=== PATIENT | female | born 1955 | race Caucasian/White ===

== ENCOUNTER → 2017-03-18 | Outpatient (CLI) | payer OTHER ==
[~2017-03-18] MED LIST: ALBU90OI61 INH; AMLO10 PO; ATEN25 PO; Aspir 8181 MG PO; BENZ100A PO; BUSP10 PO; CETI5 PO; CHLO25 PO; CLON.1 PO; ETAN50I SC; FLONASE ALLERG9.9 ML; FOLI1 PO; FURO40 PO; Flovent Diskus50 MCG IH; HYDCHL25 PO; IBUP600 PO; IBUP800 PO; INSULANPEN SC; K-Dur20 MEQ PO; K-Phos Origina500 MG PO; LEVSOD137 PO; LOPE2C PO; MAGCHL64ER PO; METO50ER PO; Macrobid 100 M100 MG PO; Norco 5-325 Ta1 EACH PO; Omeprazole20 M1 PO; PANT40 PO; Pyridium100 MG PO; Spiriva Respimat INH; Spironolactone100 MG PO; THIA100 PO; TRAZ150T57; Triamcinolone A15 G2 TOP; Zofran4 MG PO
== END | disposition home or self-care (01) ==
LOC: PLD 07:03
DX: R31.9 Hematuria, unspecified (principal)
CPT/HCPCS: 88108

== ENCOUNTER 2017-03-31 03:29 | Inpatient (IN) | payer OTHER ==
[~2017-03-31] VITALS: Ht 170.2 cm; Wt 100.9 kg
[~2017-03-31 03:29] MED LIST changes: -BENZ100A PO; -CLON.1 PO; -FLONASE ALLERG9.9 ML; -FOLI1 PO; -IBUP600 PO; -K-Phos Origina500 MG PO; -LOPE2C PO; -Macrobid 100 M100 MG PO; -PANT40 PO; -Pyridium100 MG PO; -THIA100 PO; -Triamcinolone A15 G2 TOP
[2017-03-31 03:56] LABS: BASOPHILS ABSOLUTE AUTO 0.08 K/mm3 (0.00-0.23); BASOPHILS PERCENT AUTO 1 % (0-2); EOSINOPHILS ABSOLUTE AUTO 0.25 K/mm3 (0.00-0.68); EOSINOPHILS PERCENT AUTO 3 % (0-6); Hematocrit 39.2 % (33.0-51.0); Hemoglobin 13.2 g/dL (11.5-16.0); IMMATURE GRAN ABSOLUTE AUTO 0.02 K/mm3 (0.00-0.10); IMMATURE GRAN PERCENT AUTO 0 % (0-1); LYMPHOCYTES ABSOLUTE AUTO 1.53 K/mm3 (0.84-5.20); LYMPHOCYTES PERCENT AUTO 17 % (21-46); MONOCYTES ABSOLUTE AUTO 1.81 K/mm3 (0.16-1.47); MONOCYTES PERCENT AUTO 20 % (4-13); Mean Corpuscular HGB 29.9 pg (26.0-34.0); Mean Corpuscular HGB Conc 33.7 g/dL (31.5-36.5); Mean Corpuscular Volume 89 fL (80-100); Mean Platelet Volume 10.2 fL (9.1-12.4); NEUTROPHILS ABSOLUTE AUTO 5.31 K/mm3 (1.96-9.15); NEUTROPHILS PERCENT AUTO 59 % (41-73); Platelet Count 227 K/mm3 (150-400); RDW Coefficient Variation 15.3 % (11.7-14.2); RDW Standard Deviation 49.4 fL (35.1-46.3); Red Blood Cell Count 4.41 M/mm3 (3.80-5.20)
[2017-03-31 04:14] LABS: Alanine Aminotransfer (ALT/SGP 58 U/L (12-78); Albumin, Blood 3.1 g/dL (3.4-5.0); Albumin/Globulin Ratio 0.6 (0.8-1.8); Alk Phos 141 U/L (50-136); Anion Gap 7 mmol/L (6-16); Aspartate Aminotrans (AST/SGOT 72 U/L (12-37); Bilirubin, Total 1.1 mg/dL (0.1-1.0); Blood Urea Nitrogen 19 mg/dL (8-24); Bun/Creatinine Ratio 18.1 (12.0-20.0); CO2, Blood 29 mmol/L (21-32); Calcium, Blood 8.3 mg/dL (8.5-10.1); Chloride, Blood 95 mmol/L (98-108); Creatinine, Blood 1.05 mg/dL (0.40-1.00); Ethanol (Alcohol), Blood, Med <3 mg/dL; Globulin, Blood 4.9 g/dL (2.2-4.0); Glomerular Filtration Rate 57 (60-); Glucose, Blood 113 mg/dL (70-99); Potassium, Blood 3.8 mmol/L (3.5-5.5); Sodium, Blood 131 mmol/L (136-145); Troponin I <0.015 ng/mL (0.000-0.040)
[2017-03-31 05:17] LABS: CHOL/HDL RATIO 4.8; Cholesterol 198 mg/dL (50-200); Free Thyroxine 1.34 ng/dL (0.70-1.60); HDL Cholesterol 41 mg/dL (>39); LDL/HDL RATIO 3.4; Low Density Lipoprotein Chol 140 mg/dL (0-110); Triglycerides 83 mg/dL (30-160); Very Low Density Lipoprot Chol 16 mg/dL (6-32)
[2017-03-31 05:20] LABS: Thyroid Stimulating Hormone 0.594 uIU/mL (0.360-4.800)
[2017-03-31 08:16] LABS: Source, Urine Clean Catch
[2017-03-31 08:32] LABS: Bilirubin, Urine Neg (Neg); Blood, Urine 5+ (Neg); Glucose Qualitative, Urine Neg (Neg); Ketones, Urine Neg (Neg); Leukocyte Esterase, Urine Neg (Neg); Nitrite, Urine Neg (Neg); Protein, Urine Neg (Neg); Urobilinogen, Urine NORM (Normal)
[2017-03-31 08:50] LABS: Appearance, Urine Clear (Clear); Color, Urine Yellow (P-Yellow)
[2017-03-31 08:53] LABS: Bacteria Few /hpf; Red Blood Cells, Urine TNTC /hpf (0-2); Squamous Epithelial Cells Rare /hpf (Few); White Blood Cells, Urine Rare /hpf (0-5)
[2017-03-31 12:58] LABS: Alanine Aminotransfer (ALT/SGP 48 U/L (12-78); Albumin, Blood 2.7 g/dL (3.4-5.0); Albumin/Globulin Ratio 0.7 (0.8-1.8); Alk Phos 117 U/L (50-136); Anion Gap 10 mmol/L (6-16); Aspartate Aminotrans (AST/SGOT 60 U/L (12-37); Bilirubin, Total 1.5 mg/dL (0.1-1.0); Blood Urea Nitrogen 17 mg/dL (8-24); Bun/Creatinine Ratio 19.1 (12.0-20.0); CO2, Blood 25 mmol/L (21-32); Chloride, Blood 99 mmol/L (98-108); Creatinine, Blood 0.89 mg/dL (0.40-1.00); Glomerular Filtration Rate >60 (60-); Glucose, Blood 96 mg/dL (70-99); Potassium, Blood 3.8 mmol/L (3.5-5.5); Sodium, Blood 134 mmol/L (136-145); Total Protein, Blood 6.7 g/dL (6.4-8.2)
[2017-03-31 16:35] LABS: BASOPHILS ABSOLUTE AUTO 0.09 K/mm3 (0.00-0.23); BASOPHILS PERCENT AUTO 1 % (0-2); EOSINOPHILS ABSOLUTE AUTO 0.09 K/mm3 (0.00-0.68); EOSINOPHILS PERCENT AUTO 1 % (0-6); Hematocrit 34.7 % (33.0-51.0); Hemoglobin 11.6 g/dL (11.5-16.0); IMMATURE GRAN ABSOLUTE AUTO 0.01 K/mm3 (0.00-0.10); IMMATURE GRAN PERCENT AUTO 0 % (0-1); LYMPHOCYTES ABSOLUTE AUTO 1.54 K/mm3 (0.84-5.20); LYMPHOCYTES PERCENT AUTO 23 % (21-46); MONOCYTES ABSOLUTE AUTO 1.37 K/mm3 (0.16-1.47); MONOCYTES PERCENT AUTO 20 % (4-13); Mean Corpuscular HGB 29.4 pg (26.0-34.0); Mean Corpuscular HGB Conc 33.4 g/dL (31.5-36.5); Mean Corpuscular Volume 88 fL (80-100); Mean Platelet Volume 10.3 fL (9.1-12.4); NEUTROPHILS ABSOLUTE AUTO 3.68 K/mm3 (1.96-9.15); NEUTROPHILS PERCENT AUTO 54 % (41-73); Platelet Count 169 K/mm3 (150-400); RDW Standard Deviation 48.2 fL (35.1-46.3); Red Blood Cell Count 3.95 M/mm3 (3.80-5.20); White Blood Cell Count 6.78 K/mm3 (4.00-11.30)
[2017-04-01 05:17] LABS: BASOPHILS ABSOLUTE AUTO 0.07 K/mm3 (0.00-0.23); BASOPHILS PERCENT AUTO 1 % (0-2); EOSINOPHILS ABSOLUTE AUTO 0.22 K/mm3 (0.00-0.68); EOSINOPHILS PERCENT AUTO 5 % (0-6); Hematocrit 33.9 % (33.0-51.0); Hemoglobin 11.2 g/dL (11.5-16.0); IMMATURE GRAN PERCENT AUTO 0 % (0-1); LYMPHOCYTES ABSOLUTE AUTO 1.19 K/mm3 (0.84-5.20); LYMPHOCYTES PERCENT AUTO 25 % (21-46); MONOCYTES ABSOLUTE AUTO 0.91 K/mm3 (0.16-1.47); MONOCYTES PERCENT AUTO 19 % (4-13); Mean Corpuscular HGB 29.1 pg (26.0-34.0); Mean Corpuscular Volume 88 fL (80-100); Mean Platelet Volume 10.3 fL (9.1-12.4); NEUTROPHILS ABSOLUTE AUTO 2.47 K/mm3 (1.96-9.15); NEUTROPHILS PERCENT AUTO 51 % (41-73); Platelet Count 152 K/mm3 (150-400); RDW Coefficient Variation 14.8 % (11.7-14.2); RDW Standard Deviation 47.9 fL (35.1-46.3); Red Blood Cell Count 3.85 M/mm3 (3.80-5.20); White Blood Cell Count 4.86 K/mm3 (4.00-11.30)
[2017-04-01 05:48] LABS: Anion Gap 9 mmol/L (6-16); Blood Urea Nitrogen 12 mg/dL (8-24); Bun/Creatinine Ratio 16.5 (12.0-20.0); CO2, Blood 26 mmol/L (21-32); Chloride, Blood 101 mmol/L (98-108); Creatinine, Blood 0.73 mg/dL (0.40-1.00); Glomerular Filtration Rate >60 (60-); Glucose, Blood 86 mg/dL (70-99); Potassium, Blood 3.9 mmol/L (3.5-5.5); Sodium, Blood 136 mmol/L (136-145)
[2017-04-02 04:57] LABS: Alanine Aminotransfer (ALT/SGP 39 U/L (12-78); Albumin, Blood 2.4 g/dL (3.4-5.0); Albumin/Globulin Ratio 0.6 (0.8-1.8); Alk Phos 109 U/L (50-136); Anion Gap 9 mmol/L (6-16); Aspartate Aminotrans (AST/SGOT 49 U/L (12-37); Bilirubin, Total 1.3 mg/dL (0.1-1.0); Blood Urea Nitrogen 14 mg/dL (8-24); Bun/Creatinine Ratio 18.2 (12.0-20.0); CO2, Blood 26 mmol/L (21-32); Calcium, Blood 8.4 mg/dL (8.5-10.1); Chloride, Blood 101 mmol/L (98-108); Creatinine, Blood 0.77 mg/dL (0.40-1.00); Glomerular Filtration Rate >60 (60-); Glucose, Blood 112 mg/dL (70-99); Potassium, Blood 3.9 mmol/L (3.5-5.5); Sodium, Blood 136 mmol/L (136-145); Total Protein, Blood 6.4 g/dL (6.4-8.2)
[2017-05-20] MEDS ORDERED: IBUP600 PO (09:04)
[2017-05-20] MEDS ORDERED: LOPE2C PO (09:04)
[2017-05-20] MEDS ORDERED: Pyridium100 MG PO (09:04)
[2017-05-20] MEDS ORDERED: Macrobid 100 M100 MG PO (09:04)
[2017-08-16] MEDS ORDERED: Triamcinolone A15 G2 TOP (15:15)
[2017-08-16] MEDS ORDERED: BENZ100A PO (15:16)
[2017-08-16] MEDS ORDERED: ALBU90OI61 INH (15:16)
[2017-08-16] MEDS ORDERED: FLONASE ALLERG9.9 ML (15:20)
[2017-08-19] MEDS ORDERED: FOLI1 PO (12:47)
[2017-08-19] MEDS ORDERED: CLON.1 PO (12:47)
[2017-08-19] MEDS ORDERED: PANT40 PO (12:48)
[2017-08-19] MEDS ORDERED: THIA100 PO (12:49)
[2017-08-19] MEDS ORDERED: K-Phos Origina500 MG PO (12:49)
== END 2017-04-02 14:15 | disposition home or self-care (01) | DRG 440 ==
LOC: ER 03:29 → MEDS 03:30 → ENPENDDIS 04-02 10:00 → MEDS 04-02 14:15
PROVIDERS: Emergency Medicine; Internal Medicine
DX: K85.90 Acute pancreatitis without necrosis or infection, unspecified (principal); E03.9 Hypothyroidism, unspecified; E11.9 Type 2 diabetes mellitus without complications; I10 Essential (primary) hypertension; L40.9 Psoriasis, unspecified; F10.20 Alcohol dependence, uncomplicated; Z88.8 Allergy status to other drugs, medicaments and biological substances; Z79.4 Long term (current) use of insulin; Z79.899 Other long term (current) drug therapy
CPT/HCPCS: 36415; 71046; 76705; 80048; 80053; 80061; 81001; 82947; 83690; 84439; 84443; 84484; 85025; 87077; 87086; 87147; 87186; 93005; 93010; 94640; 94760; 99285; G0480; J1650; J1815; J3411; J7030

== ENCOUNTER → 2018-06-22 | Outpatient (CLI) | payer OTHER ==
[~2018-06-22] MED LIST changes: +BENZ100A PO; +CLON.1 PO; +FLONASE ALLERG9.9 ML; +FOLI1 PO; +IBUP600 PO; +K-Phos Origina500 MG PO; +LOPE2C PO; +Macrobid 100 M100 MG PO; +PANT40 PO; +Pyridium100 MG PO; +THIA100 PO; +Triamcinolone A15 G2 TOP
== END ==
LOC: LAB 16:20 → LAB SHORT 16:20
DX: L08.9 Local infection of the skin and subcutaneous tissue, unspecified (principal)
CPT/HCPCS: 87070; 87077; 87147; 87186; 87205

== ENCOUNTER → 2018-12-01 | Outpatient (CLI) | payer OTHER ==
[2018-12-01 19:48] LABS: Creatinine, Urine Random 25.7 mg/dL (27.00-270.00)
[2018-12-01 19:51] LABS: Microalb/Creat Ratio UR, Rand 38.794 mg/g (0.000-30.000); Microalbumin, Random Urine 9.97 mg/L (0.000-20.000)
== END | disposition home or self-care (01) ==
LOC: LAB SHORT 13:01 → LAB 13:01
PROVIDERS: Nurse Practitioner Family
DX: E11.65 Type 2 diabetes mellitus with hyperglycemia (principal)
CPT/HCPCS: 82043; 82570

== ENCOUNTER 2019-12-18 15:52 | Emergency (ER) | payer OTHER ==
[~2019-12-18] VITALS: Ht 170.2 cm; Wt 122.5 kg
[~2019-12-18 15:52] MED LIST changes: +BASAGLAR K100 UNIT/1; +BENADRYL25 MG PO; +CEPH500 PO; +Lotrisone Cream45 GM TOP; +Ultram50 MG PO
[2019-12-18 17:21] LABS: Source, Urine Catheter
[2019-12-18 17:26] LABS: BASOPHILS ABSOLUTE AUTO 0.04 K/mm3 (0.00-0.23); BASOPHILS PERCENT AUTO 1 % (0-2); EOSINOPHILS ABSOLUTE AUTO 0.02 K/mm3 (0.00-0.68); EOSINOPHILS PERCENT AUTO 1 % (0-6); Hemoglobin 11.5 g/dL (11.5-16.0); IMMATURE GRAN ABSOLUTE AUTO 0.01 K/mm3 (0.00-0.10); IMMATURE GRAN PERCENT AUTO 0 % (0-1); LYMPHOCYTES ABSOLUTE AUTO 0.36 K/mm3 (0.84-5.20); LYMPHOCYTES PERCENT AUTO 8 % (21-46); MONOCYTES ABSOLUTE AUTO 0.55 K/mm3 (0.16-1.47); MONOCYTES PERCENT AUTO 13 % (4-13); Mean Corpuscular HGB 32.2 pg (26.0-34.0); Mean Corpuscular HGB Conc 31.9 g/dL (31.5-36.5); Mean Corpuscular Volume 101 fL (80-100); Mean Platelet Volume 9.5 fL (9.1-12.4); NEUTROPHILS ABSOLUTE AUTO 3.39 K/mm3 (1.96-9.15); NEUTROPHILS PERCENT AUTO 78 % (41-73); Platelet Count 85 K/mm3 (150-400); RDW Coefficient Variation 15.2 % (11.7-14.2); RDW Standard Deviation 56.7 fL (35.1-46.3); Red Blood Cell Count 3.57 M/mm3 (3.80-5.20); White Blood Cell Count 4.37 K/mm3 (4.00-11.30)
[2019-12-18 17:45] LABS: Appearance, Urine Hazy (Clear); Bilirubin, Urine Neg (Neg); Blood, Urine 5+ (Neg); Color, Urine Yellow (P-Yellow); Glucose Qualitative, Urine Neg (Neg); Ketones, Urine 1+ (Neg); Leukocyte Esterase, Urine 2+ (Neg); Nitrite, Urine Neg (Neg); Protein, Urine 2+ (Neg); Specific Gravity, Urine 1.005 (1.003-1.022); Urobilinogen, Urine 3+ (Normal)
[2019-12-18 17:46] LABS: International Normalized Ratio 1.31; Prothrombin Time Results 13.8 Sec (9.7-11.5)
[2019-12-18 17:51] LABS: Alanine Aminotransfer (ALT/SGP 48 U/L (12-78); Albumin, Blood 2.6 g/dL (3.4-5.0); Albumin/Globulin Ratio 0.6 (0.8-1.8); Alk Phos 139 U/L (50-136); Anion Gap 9 mmol/L (6-16); Aspartate Aminotrans (AST/SGOT 104 U/L (12-37); Blood Urea Nitrogen 6 mg/dL (8-24); Bun/Creatinine Ratio 7.3 (12.0-20.0); CO2, Blood 24 mmol/L (21-32); Chloride, Blood 104 mmol/L (98-108); Creatinine, Blood 0.82 mg/dL (0.40-1.00); Ethanol (Alcohol), Blood, Med 182 mg/dL; Globulin, Blood 4.3 g/dL (2.2-4.0); Glomerular Filtration Rate >60 (60-); Glucose, Blood 111 mg/dL (70-99); Magnesium, Blood 1.8 mg/dL (1.6-2.4); Potassium, Blood 3.5 mmol/L (3.5-5.5); Sodium, Blood 137 mmol/L (136-145); Total Protein, Blood 6.9 g/dL (6.4-8.2)
[2019-12-18 18:01] LABS: Bacteria Mod /hpf; Red Blood Cells, Urine TNTC /hpf (0-2); Squamous Epithelial Cells Mod /hpf (Few)
[2019-12-18] MEDS ORDERED: Keflex500 MG PO (18:41)
== END 2019-12-18 18:57 | disposition home or self-care (01) ==
LOC: ER 15:52
PROVIDERS: Emergency Medicine
DX: N39.0 Urinary tract infection, site not specified (principal); F10.229 Alcohol dependence with intoxication, unspecified; I10 Essential (primary) hypertension; E11.9 Type 2 diabetes mellitus without complications; E03.9 Hypothyroidism, unspecified; E78.5 Hyperlipidemia, unspecified; K74.60 Unspecified cirrhosis of liver; Z88.8 Allergy status to other drugs, medicaments and biological substances; Z79.4 Long term (current) use of insulin; Z79.899 Other long term (current) drug therapy
CPT/HCPCS: 36415; 80053; 81001; 83690; 83735; 85025; 85610; 86850; 86900; 86901; 87077; 87086; 87186; 99284; A9270-GY; G0480

== ENCOUNTER → 2019-12-29 | Outpatient (CLI) | payer OTHER ==
[~2019-12-29] MED LIST changes: +Keflex500 MG PO
[2019-12-31 12:15] LABS: HPV 16 Negative (Negative); HPV 18 Negative (Negative); HPV OTHER HR TYPES Negative (Negative)
== END | disposition home or self-care (01) ==
LOC: LAB SHORT 09:27 → LAB 09:27
PROVIDERS: Obstetrics & Gynecology
DX: Z01.419 Encounter for gynecological examination (general) (routine) without abnormal findings (principal)
CPT/HCPCS: 87624; G0123

== ENCOUNTER → 2020-02-21 | Outpatient (CLI) | payer OTHER ==
[~2020-02-21] MED LIST changes: +ACAMPROSATE CA333 MG PO; +ALDACTONE25 MG PO; +ANORO ELLIPTA1 EACH INH; +ASPI81CH PO; +ATENOLOL25 MG PO; +ATOR20 PO; +B-1100 M1 PO; -BASAGLAR K100 UNIT/1; +BASAGLAR K100 UNIT/1 SC; -BUSP10 PO; +BUSP5 PO; +Buspirone HCl15 MG PO; +Cetirizine HCl10 MG PO; +DISU250 PO; +ENBREL SUR50 MG/1 M1 SC; -ETAN50I SC; +FERROUS SULFAT325 M3 PO; +FURO80 PO; +FUROSEMIDE40 MG PO; +GLIP5 PO; -K-Dur20 MEQ PO; +KLOR-CON 1010 ME1 PO; +LANOXIN PO; -LEVSOD137 PO; +LEVSOD150 PO; +METO25ER PO; +MIDO5 PO; +MIRALAX17 GM PO; +MULVITA PO; +PRED5 PO; +PROAIR DIGIHAL90 MCG IH; +PROMETRIUM PO; +SPIRIVA RESPIMAT4 G3 INH; +THERA-D2000 UNIT PO; -THIA100 PO; +TIOT18 INH; +Triamcinolone A15 G4 TOP; +XARELTO20 M1 PO; +XARELTO20 MG PO
== END | disposition home or self-care (01) ==
LOC: PLD 13:38 → LAB SHORT 13:38
DX: N95.0 Postmenopausal bleeding (principal)
CPT/HCPCS: 88305

== ENCOUNTER 2020-04-09 09:53 | Inpatient (IN) | payer OTHER ==
[~2020-04-09] VITALS: Ht 170.2 cm; Wt 118.2 kg
[~2020-04-09 09:53] MED LIST changes: -ACAMPROSATE CA333 MG PO; -ALDACTONE25 MG PO; -ANORO ELLIPTA1 EACH INH; -ASPI81CH PO; -ATENOLOL25 MG PO; -ATOR20 PO; -B-1100 M1 PO; -BUSP5 PO; -Cetirizine HCl10 MG PO; -DISU250 PO; -FERROUS SULFAT325 M3 PO; -FOLI1 PO; -FURO80 PO; -FUROSEMIDE40 MG PO; -GLIP5 PO; -LANOXIN PO; -MAGCHL64ER PO; -METO25ER PO; -MIDO5 PO; -MIRALAX17 GM PO; -MULVITA PO; -PRED5 PO; -PROAIR DIGIHAL90 MCG IH; -PROMETRIUM PO; -SPIRIVA RESPIMAT4 G3 INH; -THERA-D2000 UNIT PO; -TIOT18 INH; -Triamcinolone A15 G4 TOP; -XARELTO20 M1 PO; -XARELTO20 MG PO
[2020-04-09 11:08] LABS: BASOPHILS ABSOLUTE AUTO 0.06 K/mm3 (0.00-0.23); BASOPHILS PERCENT AUTO 0 % (0-2); EOSINOPHILS ABSOLUTE AUTO 0.01 K/mm3 (0.00-0.68); EOSINOPHILS PERCENT AUTO 0 % (0-6); Hematocrit 35.4 % (33.0-51.0); Hemoglobin 10.9 g/dL (11.5-16.0); IMMATURE GRAN PERCENT AUTO 1 % (0-1); LYMPHOCYTES ABSOLUTE AUTO 0.53 K/mm3 (0.84-5.20); LYMPHOCYTES PERCENT AUTO 3 % (21-46); MONOCYTES PERCENT AUTO 8 % (4-13); Mean Corpuscular HGB 30.9 pg (26.0-34.0); Mean Corpuscular HGB Conc 30.8 g/dL (31.5-36.5); Mean Corpuscular Volume 100 fL (80-100); Mean Platelet Volume 10.6 fL (9.1-12.4); NEUTROPHILS ABSOLUTE AUTO 18.08 K/mm3 (1.96-9.15); NEUTROPHILS PERCENT AUTO 88 % (41-73); NRBC ABSOLUTE 0.02 K/mm3 (0.00-0.02); NRBC Auto 0.1 /100 WBC (0.0-0.2); Platelet Count 107 K/mm3 (150-400); RDW Coefficient Variation 17.5 % (11.7-14.2); RDW Standard Deviation 63.1 fL (35.1-46.3); Red Blood Cell Count 3.53 M/mm3 (3.80-5.20); White Blood Cell Count 20.48 K/mm3 (4.00-11.30)
[2020-04-09 11:27] LABS: Albumin, Blood 2.4 g/dL (3.4-5.0); Albumin/Globulin Ratio 0.5 (0.8-1.8); Bilirubin, Total 4.7 mg/dL (0.1-1.0); Bun/Creatinine Ratio 18.9 (12.0-20.0); Creatinine, Blood 1.06 mg/dL (0.40-1.00); Globulin, Blood 5.1 g/dL (2.2-4.0); Potassium, Blood 3.3 mmol/L (3.5-5.5); Total Protein, Blood 7.5 g/dL (6.4-8.2); Troponin I 0.498 ng/mL (0.000-0.040)
[2020-04-09] MEDS ORDERED: ANORO ELLIPTA1 EACH INH (11:42)
[2020-04-09 11:43] LABS: Ethanol (Alcohol), Blood, Med <3 mg/dL; Magnesium, Blood 1.6 mg/dL (1.6-2.4); Phosphorus, Blood 3.2 mg/dL (2.5-4.9)
[2020-04-09] MEDS ORDERED: PROMETRIUM PO (11:43)
[2020-04-09 11:46] LABS: Source, Urine Clean Catch
[2020-04-09 11:55] LABS: Appearance, Urine Hazy (Clear); Blood, Urine 5+ (Neg); Color, Urine Amber (P-Yellow); Glucose Qualitative, Urine Neg (Neg); Ketones, Urine 1+ (Neg); Leukocyte Esterase, Urine 1+ (Neg); Nitrite, Urine Pos (Neg); Protein, Urine 4+ (Neg); Urobilinogen, Urine 2+ (Normal)
[2020-04-09 12:04] LABS: Bilirubin, Urine 2+ (Neg)
[2020-04-09 12:10] LABS: Bacteria Mod /hpf; Red Blood Cells, Urine TNTC /hpf (0-2); Squamous Epithelial Cells Mod /hpf (Few)
[2020-04-09 12:14] LABS: U Amphetamine Screen Not Detected; U Barbituate Screen Not Detected; U Benzodiazapine Screen Not Detected; U Buprenorphine Screen Not Detected; U Cannabinoids Screen Not Detected; U Cocaine Screen Not Detected; U Methadone Screen Not Detected; U Methamphetamine Screen Not Detected; U Opiates Screen Not Detected; U Oxycodone Screen Not Detected; U Phencyclidine Screen Not Detected; U Propoxyphene Screen Not Detected
[2020-04-09] MEDS ORDERED: Cetirizine HCl10 MG PO (12:49)
[2020-04-09] MEDS ORDERED: FUROSEMIDE40 MG PO (12:51)
[2020-04-09] MEDS ORDERED: GLIP5 PO (12:52)
[2020-04-09 12:55] LABS: Influenza A, PCR Negative (NEGATIVE); Influenza B, PCR Negative (NEGATIVE); Resp Syncytial Virus, PCR Negative (NEGATIVE); SARS-Cov-2 (COVID-19) PCR, MMC Negative (NEGATIVE)
[2020-04-09] MEDS ORDERED: B-1100 M1 PO (13:29)
[2020-04-09] MEDS ORDERED: FOLI1 PO (13:29)
[2020-04-09] MEDS ORDERED: DISU250 PO (13:44)
[2020-04-09] MEDS ORDERED: MAGCHL64ER PO (13:47)
--- NOTE | 2020-04-09 16:10 | NUR ---
ASSSUMED CARE: PT ARRIVED TO PCU 3 ON 2L O2 SATTING LOW 90S. PT APPEARS TO BE GRUNTING AND TAKING BREATHS BETWEEN WORDS, UNABLE TO COMPLETE A SENTENCE WITHOUT TAKING A BREATH. LUNG SOUNDS COARSE. NSR WITH PVCS IN 120S ON TELE AT THIS TIME. SEIZURE PADS IN PLACE. PSORIASIS NOTED T/O BODY, ARMS, LEGS AND ABDOMEN AND BACK. STATES SHE FEELS LIKE SHE CAN'T BREATH. DR HOWELL REVIEWED LABS AND IS AT BEDSIDE AT THIS TIME.
--- NOTE | 2020-04-09 16:19 | NUR ---
PT'S RESPIRATORY DISTRESS CAUSING PT TO GRUNT AND STRUGGLE BUT SATTING 91% ON 2L NC. DR HOWELL ASKED FOR RT TO COME EVALUATE. RT AT BEDSIDE AT TIS TIME.
--- NOTE | 2020-04-09 19:15 | NUR ---
SHIFT SUMMARY: PT ON CPAP BUT PULLING IT OFF FREQUENTLY AND CONFUSED. INCREASED WORK OF BREATHING. ATIVAN PROVIDED THAT DID NOT SEEM EFFECTIVE. NIGHT FUR PULLER AWARE OF PT'S RECENT CIWA AND STATUS. AT BEDSIDE WITH NIGHT RN AND CURING OVEN ATTENDANT AT THIS TIME. CARDIOLOGY CONSULT CALLED IN TO BE SEEN TOMORROW.
[2020-04-09 22:27] LABS: Source, Urine Catheter
[2020-04-09 22:31] LABS: Appearance, Urine Clear (Clear); Blood, Urine 5+ (Neg); Color, Urine Amber (P-Yellow); Glucose Qualitative, Urine Neg (Neg); Ketones, Urine 1+ (Neg); Leukocyte Esterase, Urine 1+ (Neg); Nitrite, Urine Pos (Neg); Protein, Urine 2+ (Neg); Urobilinogen, Urine 2+ (Normal)
[2020-04-09 22:33] LABS: Bilirubin, Urine 1+ (Neg)
[2020-04-09 22:40] LABS: Bacteria Many /hpf; Red Blood Cells, Urine 25-50 /hpf (0-2); Squamous Epithelial Cells Few /hpf (Few); Yeast/Fungi Urine Few /hpf
[2020-04-10 06:12] LABS: BASOPHILS ABSOLUTE AUTO 0.05 K/mm3 (0.00-0.23); BASOPHILS PERCENT AUTO 0 % (0-2); EOSINOPHILS PERCENT AUTO 0 % (0-6); Hematocrit 33.2 % (33.0-51.0); Hemoglobin 10.1 g/dL (11.5-16.0); IMMATURE GRAN ABSOLUTE AUTO 0.13 K/mm3 (0.00-0.10); IMMATURE GRAN PERCENT AUTO 1 % (0-1); LYMPHOCYTES ABSOLUTE AUTO 0.78 K/mm3 (0.84-5.20); LYMPHOCYTES PERCENT AUTO 5 % (21-46); MONOCYTES ABSOLUTE AUTO 2.01 K/mm3 (0.16-1.47); MONOCYTES PERCENT AUTO 13 % (4-13); Mean Corpuscular HGB 31.3 pg (26.0-34.0); Mean Corpuscular HGB Conc 30.4 g/dL (31.5-36.5); Mean Corpuscular Volume 103 fL (80-100); Mean Platelet Volume 10.6 fL (9.1-12.4); NEUTROPHILS ABSOLUTE AUTO 12.86 K/mm3 (1.96-9.15); NEUTROPHILS PERCENT AUTO 81 % (41-73); NRBC ABSOLUTE 0.02 K/mm3 (0.00-0.02); NRBC Auto 0.1 /100 WBC (0.0-0.2); Platelet Count 103 K/mm3 (150-400); RDW Coefficient Variation 17.2 % (11.7-14.2); RDW Standard Deviation 64.4 fL (35.1-46.3); Red Blood Cell Count 3.23 M/mm3 (3.80-5.20); White Blood Cell Count 15.83 K/mm3 (4.00-11.30)
[2020-04-10 06:39] LABS: Albumin, Blood 2.4 g/dL (3.4-5.0); Albumin/Globulin Ratio 0.6 (0.8-1.8); Bilirubin, Total 3.4 mg/dL (0.1-1.0); Bun/Creatinine Ratio 22.1 (12.0-20.0); Calcium, Blood 7.6 mg/dL (8.5-10.1); Creatinine, Blood 1.31 mg/dL (0.40-1.00); Globulin, Blood 4.3 g/dL (2.2-4.0); Potassium, Blood 3.3 mmol/L (3.5-5.5); Total Protein, Blood 6.7 g/dL (6.4-8.2)
--- NOTE | 2020-04-10 11:01 | NUR ---
AM NOTE DURING ASSESSMENT PT ALERT AND ORIENTED x3; ANXIOUS BUT COOPERATIVE WITH CARE. PT REPORT OBRIEN; TREMORS NOTED WITH MOVEMENT; PT DENIES HALLUCINATIONS. PT APPEARS TO EAT BREAKFAST WITHOUT ISSUE HOWEVER COUGHING WITH MEDICATIONS IN WATER; CBG 60'S THIS AM; NOTIFIED DR RENEE, ORDERS TO RECHECK BLOOD GLUCOSE. PT A LITTLE CONFUSED ON LAST ROUNDING; DR RENEE AT BEDSIDE. PT BREATHING LABORED AT TIMES; DIM T/O. SPO2 >90% ON 2L O2 VIA NC OR CPAP. ABD DISTENDER, FIRM ON PALPATATION. OTHER VSS. WILL CONTINUE TO MONITOR.
--- NOTE | 2020-04-10 16:06 | NUR ---
ADMIT: 04/09/20 DISCHARGE: DX: Hypoxia, Sepsis CC: ADMIT: 08/16/17 DISCHARGE: 08/18/17 NICA CALL: CALL PATIENT FOR NICA RESIDENCE: home CAREGIVER: self DX: alcoholism, cirrhosis, HTN, GERD, Type 2 DM see list DME: DM supplies, adult pull ups, grab bars, shower chair, see list CCM: Referral 2018 HOME HEALTH: none SUMMARY: 04/09/20 04/10/20- per chart review with Dr. Polk, pt is on CPAP and Bipap due to low O2 at admission and pneumonis. Pt is also in alcohol withdrawal and being monitored for this along with sepsis and a UTI. Orders have been placed for OT and PT, along with an echocardiogram and requested for cardiology consult. No est ETA for d/c at this time. -abdiel
--- NOTE | 2020-04-10 18:34 | NUR ---
SHIFT SUMMARY PT HAVING INTERMITTENT CONFUSION T/O SHIFT. ANXIOUS AT TIMES. PT REPORTING BACK PAIN, REPOSITIONED FOR COMFORT. PT REPORTS HEADACHE, NAUSEA AND HAVING TREMORS DURING SHIFT. PT DENIES HALLUCINATIONS. CIWA 10-11 T/O SHIFT, MEDICATED x2 WITH ATIVAN. PT ON CPAP FOR MAJOIRTY OF SHIFT. PER TELE PT HR JUMPING TO 140'S BUT QUICK TRENDS DOWN. PT OUTPUT 350cc DURING SHIFT, DR RENEE NOTIFIED. PT CONTINUES TO COUGH WITH SIPS OF WATER; DR RENEE AT BEDSIDE, NEW ORDERS FOR THICKENED LIQUIDS. VSS. NO OTHER ACUTE CHAGNES NOTED DURING SHIFT.
[2020-04-11 00:58] LABS: BASOPHILS ABSOLUTE AUTO 0.04 K/mm3 (0.00-0.23); BASOPHILS PERCENT AUTO 0 % (0-2); EOSINOPHILS ABSOLUTE AUTO 0.01 K/mm3 (0.00-0.68); EOSINOPHILS PERCENT AUTO 0 % (0-6); Hematocrit 33.4 % (33.0-51.0); Hemoglobin 9.9 g/dL (11.5-16.0); IMMATURE GRAN ABSOLUTE AUTO 0.26 K/mm3 (0.00-0.10); IMMATURE GRAN PERCENT AUTO 2 % (0-1); LYMPHOCYTES ABSOLUTE AUTO 1.02 K/mm3 (0.84-5.20); LYMPHOCYTES PERCENT AUTO 6 % (21-46); MONOCYTES ABSOLUTE AUTO 2.53 K/mm3 (0.16-1.47); MONOCYTES PERCENT AUTO 16 % (4-13); Mean Corpuscular HGB 30.7 pg (26.0-34.0); Mean Corpuscular HGB Conc 29.6 g/dL (31.5-36.5); Mean Corpuscular Volume 103 fL (80-100); Mean Platelet Volume 10.9 fL (9.1-12.4); NEUTROPHILS ABSOLUTE AUTO 12.34 K/mm3 (1.96-9.15); NEUTROPHILS PERCENT AUTO 76 % (41-73); NRBC ABSOLUTE 0.02 K/mm3 (0.00-0.02); NRBC Auto 0.1 /100 WBC (0.0-0.2); Platelet Count 118 K/mm3 (150-400); RDW Coefficient Variation 17.6 % (11.7-14.2); RDW Standard Deviation 65.9 fL (35.1-46.3); Red Blood Cell Count 3.23 M/mm3 (3.80-5.20)
[2020-04-11 01:19] LABS: Albumin, Blood 2.4 g/dL (3.4-5.0); Albumin/Globulin Ratio 0.5 (0.8-1.8); Bilirubin, Total 3.6 mg/dL (0.1-1.0); Bun/Creatinine Ratio 22.8 (12.0-20.0); Calcium, Blood 7.9 mg/dL (8.5-10.1); Creatinine, Blood 1.67 mg/dL (0.40-1.00); Globulin, Blood 4.8 g/dL (2.2-4.0); Potassium, Blood 3.5 mmol/L (3.5-5.5); Total Protein, Blood 7.2 g/dL (6.4-8.2)
[2020-04-11 01:40] LABS: Vancomycin, Trough 30.2 ug/mL (5.0-10.0)
--- NOTE | 2020-04-11 05:52 | NUR ---
SHIFT SUMMARY PT RESTED WELL THROUGH NGHT. CIWAS 8, 7, AND 5. ATIVAN X1. ZOFRAN X1. LETHARGIC AND DISORIENTED. ATTENDS CHANGED - BABY POWDER IN FOLDS TO KEEP DRY AND PREVENT IRRITATION. CABALLERO DRAINING TO GRAVITY - IAN CARE PERFORMED. SATS >90% ON 2LNC, CPAP AT HS. TELE AFIB. VSS. CALL LIGHT WITHIN REACH, BED IN LOWEST POSITION. WILL OCNTINUE TO MONITOR.
--- NOTE | 2020-04-11 12:17 | NUR ---
Pt was asking for lunch about an hour ago. Assisted from bed to chair, very weak. Fell asleep after being fed about 3 bites. She is still sitting up in the chair.
--- NOTE | 2020-04-11 13:01 | NUR ---
04/11/20- PER CHART REVIEW, PT IS STILL EXPERIENCING ALCOHOL WITHDRAWAL AND ARRHYTHMIAS. PT IS ALSO SEPTIC AND HAS A RIGHT LOWER LOBE PNEUMONIA AND UTI. NO EST ETA FOR D/C AT THIS TIME. -CRIS
[2020-04-11 14:19] LABS: Vancomycin, Trough 19.3 ug/mL (5.0-10.0)
--- NOTE | 2020-04-11 17:07 | NUR ---
NOTIFIED DR SEVERINO OF PROVIDER CONSULT; NEW ORDERS ENTERED.
--- NOTE | 2020-04-11 18:44 | NUR ---
SHIFT SUMMARY PT MORE ALERT DURING SHIFT, ORIENTED x2-3; INTERMITTENT CONFUSION. CIWA <8 T/O SHIFT. PT SOB WITH EXERTION; TITRATED TO RA; SPO2 >90 T/O SHIFT. UP IN RECLINER THIS AFTERNOON. CABALLERO IN PLACE; PATENT AND DRAINING, OUTPUT 250cc DR SEVERINO NOTIFIED. DR SEVERINO AT BEDSIDE THIS EVENING; NEW ORDER ENTERED. VSS. NO OTHER ACUTE CHANGES NOTED DURING SHIFT. WILL CONTINUE TO MONITOR UNTIL REPORT GIVEN TO ONCOMING RN.
[2020-04-12 05:41] LABS: BASOPHILS ABSOLUTE AUTO 0.08 K/mm3 (0.00-0.23); BASOPHILS PERCENT AUTO 1 % (0-2); EOSINOPHILS ABSOLUTE AUTO 0.13 K/mm3 (0.00-0.68); EOSINOPHILS PERCENT AUTO 1 % (0-6); Hematocrit 34.1 % (33.0-51.0); Hemoglobin 10.4 g/dL (11.5-16.0); IMMATURE GRAN ABSOLUTE AUTO 0.34 K/mm3 (0.00-0.10); IMMATURE GRAN PERCENT AUTO 2 % (0-1); LYMPHOCYTES ABSOLUTE AUTO 1.48 K/mm3 (0.84-5.20); LYMPHOCYTES PERCENT AUTO 10 % (21-46); MONOCYTES ABSOLUTE AUTO 2.21 K/mm3 (0.16-1.47); MONOCYTES PERCENT AUTO 15 % (4-13); Mean Corpuscular HGB 31.5 pg (26.0-34.0); Mean Corpuscular HGB Conc 30.5 g/dL (31.5-36.5); Mean Corpuscular Volume 103 fL (80-100); Mean Platelet Volume 10.7 fL (9.1-12.4); NEUTROPHILS ABSOLUTE AUTO 10.94 K/mm3 (1.96-9.15); NEUTROPHILS PERCENT AUTO 72 % (41-73); NRBC ABSOLUTE 0.03 K/mm3 (0.00-0.02); NRBC Auto 0.2 /100 WBC (0.0-0.2); Platelet Count 148 K/mm3 (150-400); RDW Coefficient Variation 17.8 % (11.7-14.2); RDW Standard Deviation 65.8 fL (35.1-46.3); White Blood Cell Count 15.18 K/mm3 (4.00-11.30)
[2020-04-12 06:16] LABS: Alanine Aminotransfer (ALT/SGP 78 U/L (12-78); Albumin, Blood 2.4 g/dL (3.4-5.0); Albumin/Globulin Ratio 0.5 (0.8-1.8); Alk Phos 104 U/L (50-136); Anion Gap 7 mmol/L (6-16); Aspartate Aminotrans (AST/SGOT 215 U/L (12-37); Bilirubin, Total 3.6 mg/dL (0.1-1.0); Blood Urea Nitrogen 35 mg/dL (8-24); Bun/Creatinine Ratio 22.9 (12.0-20.0); CO2, Blood 31 mmol/L (21-32); Calcium, Blood 8.4 mg/dL (8.5-10.1); Chloride, Blood 107 mmol/L (98-108); Creatinine, Blood 1.53 mg/dL (0.40-1.00); Glomerular Filtration Rate 37 (60-); Glucose, Blood 117 mg/dL (70-99); Magnesium, Blood 1.9 mg/dL (1.6-2.4); Phosphorus, Blood 4.3 mg/dL (2.5-4.9); Potassium, Blood 3.2 mmol/L (3.5-5.5); Sodium, Blood 145 mmol/L (136-145); Total Protein, Blood 7.4 g/dL (6.4-8.2)
--- NOTE | 2020-04-12 07:38 | NUR ---
SHIFT SUMMARY PT ALERT, ORIENTED TO SELF; UNABLE TO ANSWER ORIENTING QUESTIONS; VSS; NSR W/ PVC NOTED ON TELE; O2 SATS >93 ON 3L NC; CPAP AT TIMES; PT PULLS IT OFF AT TIMES; CABALLERO PULLED, UNKNOWN HOW; BALLOON WAS FOUND TO STILL BE INFLATED; NO BLEEDING OR TRAUMA NOTED; SKIN RED / PLAQUE PSORIASIS T/O; BLE 1+; 24 URINE IN PROGRESS, 1 UNMEASURED VOID SINCE CABALLERO DISPLACED; ATIVAN X1 FOR CIWA 9; CAMERA ON FOR SAFETY OF PULLING LINES; CALL LIGHT IN REACH; BED IN LOWEST POSITION; BED ALARM ON; REPORT GIVEN TO DAY SHIFT RN.
[2020-04-12 10:29] LABS: Protein, Urine Quantitative 9.3 mg/dL (0.0-11.9)
--- NOTE | 2020-04-12 19:36 | NUR ---
Shift summary: Pt alert to self and situation. At times she was able to state she was in the hospital but not able to state correct date or time. Intermittent confusion, discussing a cat in the room this am. Vital signs stable. Tele showing NSR with HR 70-80's. On 1-2 L nasal cannula this shift sating above 92%. Wearing CPAP this am when asleep. Speech in to see pt, new orders placed and patient NPO status with med delivery precautions. Dr. Higgins in to see patient and orders placed for specific medications to be po. See nurse notify order. Nystatin cream also ordered for yeast rash under bilateral breasts. Skin clean, and dry. Scattered psoriasis throughout body. Pt up to bedside commode this shift voiding well, SOB with exerction. 1 L fluid restriction maintained. Dr. Grajeda paged twice today then called for order verification on potassium 80 meq. Order verification recieved later this evening and 2nd 40 meq dose of potassium started. Camera remained on for patient safety. Call light remained in reach and bed low in locked position.
--- NOTE | 2020-04-12 19:44 | NUR ---
PHARMACY NOTIFIED THIS RN CONCERNING POSSIBLE DUPLICATE ORDER OF IV K+. 40 MEQ ORDERED FOR MORNING AND ANOTHER 40 MEQ IV ORDERED FOR EARLY AFTERNOON. THIS RN SPOKE WITH CHARGE NURSE MEL REGARDING K+ ORDER, MEL RN AGREED TO VERIFY ORDER WITH DR. CRISTINA. THIS RN PAGED DR. CRISTINA TWICE THIS SHIFT, ONCE IN MORNING, ONCE IN EARLY AFTERNOON. DISCUSSED SITUATION AGAIN WITH MEL RN, MEL AGREED ON HOLDING K+ UNTIL VERIFICATION OBTAINED. THIS RN PRESENT WITH BRE RN FOR CALL TO DR. CRISTINA CELL PHONE, BRE WAS INSTRUCTED TO CALL AGAIN AT A LATER TIME THE DOCTOR WAS UNABLE TO SPEAK AT THAT TIME. CHARGE NURSE AGAIN UPDATED.
[2020-04-13 04:28] LABS: Hematocrit 35.5 % (33.0-51.0); Hemoglobin 10.8 g/dL (11.5-16.0)
--- NOTE | 2020-04-13 04:49 | NUR ---
SHIFT SUMMARY LYING ON RIGHT SIDE FACING WINDOW WITH EYES CLOSED AND TV ON IN ROOM. AAO X4, BERNSTEIN, FAC. IMPROVED MENTATION NOTED THIS SHIFT. OCCASIONAL HALLUCINATION NOTED TONIGHT. HAS AMBULATED TO BSC MULTIPLE TIMES THIS SHIFT. GREAT OUTPUT NOTED. CONTINUES TO BE NPO AND REPOEATEDLY ASKS FOR SOMETHING TO EAT AND DRINK. NURSING REITERATES NEED FOR NPO AT THIS TIME. VSS, DENIES PAIN, DISCOMFORT, OR FURTHER NEEDS AT THIS TIME. NO SIGNIFICANT CHANGES NOTED. SAFETY MEASURESIN PLACE. WILL CONTINUE TO MONITOR UNTIL HAND OFF USING SBAR AT BEDSIDE SHIFT REPORT.
[2020-04-13 04:53] LABS: Alanine Aminotransfer (ALT/SGP 70 U/L (12-78); Albumin, Blood 2.3 g/dL (3.4-5.0); Anion Gap 8 mmol/L (6-16); Aspartate Aminotrans (AST/SGOT 153 U/L (12-37); Blood Urea Nitrogen 34 mg/dL (8-24); Bun/Creatinine Ratio 21.5 (12.0-20.0); CO2, Blood 39 mmol/L (21-32); Chloride, Blood 103 mmol/L (98-108); Creatinine, Blood 1.58 mg/dL (0.40-1.00); Glomerular Filtration Rate 35 (60-); Glucose, Blood 119 mg/dL (70-99); Magnesium, Blood 1.3 mg/dL (1.6-2.4); Phosphorus, Blood 4.7 mg/dL (2.5-4.9); Potassium, Blood 2.9 mmol/L (3.5-5.5); Sodium, Blood 150 mmol/L (136-145)
[2020-04-13 15:54] LABS: Bun/Creatinine Ratio 21.9 (12.0-20.0); Calcium, Blood 9.1 mg/dL (8.5-10.1); Creatinine, Blood 1.6 mg/dL (0.40-1.00); Magnesium, Blood 2.5 mg/dL (1.6-2.4); Potassium, Blood 3.2 mmol/L (3.5-5.5)
--- NOTE | 2020-04-13 17:17 | NUR ---
NO ACUTE EVENTS THIS SHIFT, VSS. PATIENT IS ORIENTED X4 THIS SHIFT, ABLE TO DISCUSS SITUATION AND PLANS FOR RESCHEDULING HER OUTPATIENT APPOINTMENTS D/T CURRENT HOSPITAL ADMISSION, ABLE TO MAKE APPROPRIATE CALL WITHOUT ASSISTANCE TO HER OUTPATIENT DR'S OFFICE. CIWA SCORE OF 1 THIS SHIFT. PATIENT IS ABLE TO USE CALL LIGHT APPROPRIATELY, COMPLAINS OF PAIN IN R. HIP, RELIEF NOTED WITH REPOSITIONING. PATIENT ON 1-2 L NASAL CANNULA AND SBA TO BEDSIDE COMMODE WITH WALKER. SPEECH WORKED WITH PATIENT TODAY, RECOMMENDATION REMAINS NPO AT THIS TIME, WILL CONTINUE TO FOLLOW.
[2020-04-14 05:18] LABS: BASOPHILS ABSOLUTE AUTO 0.04 K/mm3 (0.00-0.23); BASOPHILS PERCENT AUTO 1 % (0-2); EOSINOPHILS ABSOLUTE AUTO 0.07 K/mm3 (0.00-0.68); EOSINOPHILS PERCENT AUTO 1 % (0-6); Hematocrit 36.4 % (33.0-51.0); IMMATURE GRAN ABSOLUTE AUTO 0.24 K/mm3 (0.00-0.10); IMMATURE GRAN PERCENT AUTO 3 % (0-1); LYMPHOCYTES ABSOLUTE AUTO 1.37 K/mm3 (0.84-5.20); LYMPHOCYTES PERCENT AUTO 17 % (21-46); MONOCYTES ABSOLUTE AUTO 1.44 K/mm3 (0.16-1.47); MONOCYTES PERCENT AUTO 18 % (4-13); Mean Corpuscular HGB 30.6 pg (26.0-34.0); Mean Corpuscular HGB Conc 30.2 g/dL (31.5-36.5); Mean Corpuscular Volume 101 fL (80-100); Mean Platelet Volume 10.1 fL (9.1-12.4); NEUTROPHILS ABSOLUTE AUTO 5.05 K/mm3 (1.96-9.15); NEUTROPHILS PERCENT AUTO 62 % (41-73); NRBC ABSOLUTE 0.03 K/mm3 (0.00-0.02); NRBC Auto 0.4 /100 WBC (0.0-0.2); Platelet Count 165 K/mm3 (150-400); RDW Coefficient Variation 18.1 % (11.7-14.2); RDW Standard Deviation 66.7 fL (35.1-46.3); White Blood Cell Count 8.21 K/mm3 (4.00-11.30)
[2020-04-14 05:32] LABS: Alanine Aminotransfer (ALT/SGP 65 U/L (12-78); Albumin, Blood 2.2 g/dL (3.4-5.0); Anion Gap 5 mmol/L (6-16); Aspartate Aminotrans (AST/SGOT 109 U/L (12-37); Blood Urea Nitrogen 36 mg/dL (8-24); Bun/Creatinine Ratio 23.2 (12.0-20.0); CO2, Blood 39 mmol/L (21-32); Calcium, Blood 8.9 mg/dL (8.5-10.1); Chloride, Blood 106 mmol/L (98-108); Creatinine, Blood 1.55 mg/dL (0.40-1.00); Glomerular Filtration Rate 36 (60-); Glucose, Blood 106 mg/dL (70-99); Magnesium, Blood 2.3 mg/dL (1.6-2.4); Phosphorus, Blood 3.5 mg/dL (2.5-4.9); Potassium, Blood 3.9 mmol/L (3.5-5.5); Sodium, Blood 150 mmol/L (136-145)
--- NOTE | 2020-04-14 06:17 | NUR ---
SHIFT SUMMARY PT HAD A QUIET UNEVENTFUL NIGHT. VITALS STABLE, BP 111-125 SYSTOLIC. HR 80-90'S. O2 LOW 90'S ON 1LPM VIA NC, PT ON CPAP WHEN SLEEPING O2 SATS DROP TO 70-80'S IF NO CPAP. PT UP TO URINATE FREQUENTLY TO BSC. PT WAS LETHARGIC AND ORIENTED, VERY TIRED. PT STATED MINIMAL PAIN, PAIN FROM SCIATICA, REPOSITIONED AND HEATING PAD REDUCED PAIN. PT COOPERATIVE WITH CARE.
--- NOTE | 2020-04-14 17:02 | NUR ---
SHIFT SUMMARY NO ACUTE EVENTS THIS SHIFT, VSS. PATIENT IS ALERT AND ORIENTED X4 THIS SHIFT, STANDBY ASSIST TO BATHROOM FOR LINE MANAGEMENT. SPEECH EVALUATED PATIENT AGAIN TODAY, ADVANCED TO MECHANICAL SOFT DIET. PATIENT IS ENTHIASTIC REGARDING NEW DIET, TOLERATING PO INTAKE. CIWAs NEGATIVE THIS SHIFT, NO MEDICATION NEEDED FOR ALCOHOL W/D.
[2020-04-15 06:06] LABS: Hematocrit 32.8 % (33.0-51.0)
[2020-04-15 06:28] LABS: Albumin, Blood 2.1 g/dL (3.4-5.0); Anion Gap 5 mmol/L (6-16); Blood Urea Nitrogen 32 mg/dL (8-24); Bun/Creatinine Ratio 24.4 (12.0-20.0); CO2, Blood 38 mmol/L (21-32); Calcium, Blood 8.8 mg/dL (8.5-10.1); Chloride, Blood 103 mmol/L (98-108); Creatinine, Blood 1.31 mg/dL (0.40-1.00); Glomerular Filtration Rate 44 (60-); Glucose, Blood 123 mg/dL (70-99); Magnesium, Blood 1.9 mg/dL (1.6-2.4); Phosphorus, Blood 2.9 mg/dL (2.5-4.9); Potassium, Blood 3.7 mmol/L (3.5-5.5); Sodium, Blood 146 mmol/L (136-145)
--- NOTE | 2020-04-15 06:46 | NUR ---
SHIFT SUMMARY PT HAD LITTLE CHANGE FROM PREVIOUS NOC SHIFT. PT ALERT AND ORIENTED. CIWA SCORES WERE 0. NEURO CHECKS WERE WNL WITH NO CHANGE T/O SHIFT. VITALS STABLE, BP 113-141 SYSTOLIC. HR 70-90'S. O2 SATS IN THE 90'S. PT NOT ON CPAP AT TIMES O2 SATS 90'S. PT ABLE TO EAT THICKENED LIQUID.
--- NOTE | 2020-04-15 17:34 | NUR ---
SHIFT SUMMARY NO ACUTE EVENTS THIS SHIFT, VSS. PATIENT TOLERATING PO INTAKE WELL, NOW SWITCHED TO PO MEDICATIONS TODAY. CBGs REMAINED IN 100S, NO INSULIN COVERAGE REQUIRED. PATIENT UP FOR SHOWER, AMBULATED WELL WITH WALKER AND STANDBY ASSIST. PATIENT ALERT AND ORIENTED, NO OVERT DEFICITS NOTED ALTHOUGH SLOW TO ANSWER QUESTIONS AT TIMES.
--- NOTE | 2020-04-16 04:27 | NUR ---
SHIFT SUMMARY PT HAD A QUIET UNEVENTFUL NIGHT WITH LITTLE CHANGE FROM PREVIOUS NOC SHIFT. PT IS IN STABLE CONDTION. ON 1LPM VIA NC WITH O2 SATS >90%. BP STABLE >100 SYSTOLIC. HR 70-80'S. PT STATES NO PAIN AND IS MORE ALERT AND ACTIVE THAN PREVIOUS NOC SHIFT. PT IS IMPROVING AND DOING WELL.
[2020-04-16 05:08] LABS: BASOPHILS ABSOLUTE AUTO 0.06 K/mm3 (0.00-0.23); BASOPHILS PERCENT AUTO 1 % (0-2); EOSINOPHILS ABSOLUTE AUTO 0.13 K/mm3 (0.00-0.68); EOSINOPHILS PERCENT AUTO 2 % (0-6); Hematocrit 32.4 % (33.0-51.0); Hemoglobin 9.9 g/dL (11.5-16.0); IMMATURE GRAN PERCENT AUTO 1 % (0-1); LYMPHOCYTES ABSOLUTE AUTO 1.34 K/mm3 (0.84-5.20); LYMPHOCYTES PERCENT AUTO 18 % (21-46); MONOCYTES ABSOLUTE AUTO 0.88 K/mm3 (0.16-1.47); MONOCYTES PERCENT AUTO 12 % (4-13); Mean Corpuscular HGB 30.6 pg (26.0-34.0); Mean Corpuscular HGB Conc 30.6 g/dL (31.5-36.5); Mean Corpuscular Volume 100 fL (80-100); Mean Platelet Volume 10.4 fL (9.1-12.4); NEUTROPHILS ABSOLUTE AUTO 4.86 K/mm3 (1.96-9.15); NEUTROPHILS PERCENT AUTO 66 % (41-73); Platelet Count 128 K/mm3 (150-400); RDW Coefficient Variation 17.2 % (11.7-14.2); RDW Standard Deviation 62.4 fL (35.1-46.3); Red Blood Cell Count 3.24 M/mm3 (3.80-5.20); White Blood Cell Count 7.37 K/mm3 (4.00-11.30)
[2020-04-16 05:39] LABS: Albumin, Blood 1.9 g/dL (3.4-5.0); Albumin/Globulin Ratio 0.4 (0.8-1.8); Bilirubin, Total 2.7 mg/dL (0.1-1.0); Calcium, Blood 8.5 mg/dL (8.5-10.1); Creatinine, Blood 1.18 mg/dL (0.40-1.00); Globulin, Blood 4.4 g/dL (2.2-4.0); Magnesium, Blood 1.6 mg/dL (1.6-2.4); Phosphorus, Blood 3.4 mg/dL (2.5-4.9); Potassium, Blood 3.3 mmol/L (3.5-5.5); Total Protein, Blood 6.3 g/dL (6.4-8.2)
--- NOTE | 2020-04-16 07:18 | NUR ---
ASSUMED CARE FROM NOC RN PT WAS ASLEEP DURING MORNING REPORT. PT IS REPORTED BEING A SBA/1 PERSON TO THE BATHROOM. PT IS MED WITH TELE STATUS AND IS REPORTED BEING IN NSR AND STABLE.
--- NOTE | 2020-04-16 15:59 | NUR ---
04/16/20- PT and OT have recommended pt to go to SNF. Met with pt about referral process. She would prefer to go home but after discussing the recommendation and what will be accomplished at SNF, pt was agreeable. Pt would like to go to [facility]. Referral paperwork turned into [facility]. Est. d/c date per Dr. Llanos is either or Thu. -[facility]
--- NOTE | 2020-04-16 17:09 | NUR ---
IN HOUSE TRANSFER TO MEDICAL FLOOR PT LEFT PCU FOR MEDICAL FLOOR AT APPROXIMATELY 1700. VS STABLE, PT ON 1L O2 VIA NC. REPORT GIVEN TO MARY KAY VALADEZ. PT ESCORTED TO MEDICAL FLOOR VIA WHEELCHAIR ACCOMPANIED BY CLAYTON AND MARY KAY HEAD. PT TRANSFERRED WITH ALL PERSONAL BELONGINGS.
[2020-04-17 05:22] LABS: Hematocrit 35.4 % (33.0-51.0)
[2020-04-17 05:45] LABS: Anion Gap 8 mmol/L (6-16); Blood Urea Nitrogen 23 mg/dL (8-24); Bun/Creatinine Ratio 18.9 (12.0-20.0); CO2, Blood 32 mmol/L (21-32); Calcium, Blood 8.7 mg/dL (8.5-10.1); Chloride, Blood 97 mmol/L (98-108); Creatinine, Blood 1.22 mg/dL (0.40-1.00); Glomerular Filtration Rate 47 (60-); Glucose, Blood 111 mg/dL (70-99); Magnesium, Blood 1.5 mg/dL (1.6-2.4); Phosphorus, Blood 3.5 mg/dL (2.5-4.9); Potassium, Blood 3.5 mmol/L (3.5-5.5); Sodium, Blood 137 mmol/L (136-145)
--- NOTE | 2020-04-17 06:35 | NUR ---
SHIFT SUMMARY PATIENT ALERT AND ORIENTED. HAD NO COMPLAINTS OF PAIN OR SHORTNESS OF BREATH. DID FEEL A LITTLE WEAK OVERNIGHT. PRN MEDICATION GIVEN PER EMAR FOR NAUSEA. POWERGLIDE PATENT AND FLUSHED. BED IN LOWEST POSITION WITH WHEELS LOCKED AND ALARM ON. CALL LIGHT WITHIN REACH. REPORT GIVEN TO ONCOMING RN.
--- NOTE | 2020-04-17 18:15 | NUR ---
04/17/20- PER ANGEL WITH MCM, PT IS AGREEABLE WITH GOING TO SNF IN [place]. REQUESTED RAPID COVID ORDER FROM THE DOCTOR. ANGEL WILL MANAGE PT'S D/C FROM HERE. PT WILL BE GOING TO [facility] ([address] [address] ~[place] [place] ) WHEN SHE D/C TODAY.-KJW Discharge is delayed for today 04/17. cp
[2020-04-18 07:09] LABS: Hematocrit 30.1 % (33.0-51.0); Hemoglobin 9.6 g/dL (11.5-16.0)
[2020-04-18 07:21] LABS: Albumin, Blood 1.8 g/dL (3.4-5.0); Anion Gap 4 mmol/L (6-16); Blood Urea Nitrogen 21 mg/dL (8-24); Bun/Creatinine Ratio 18.3 (12.0-20.0); CO2, Blood 34 mmol/L (21-32); Calcium, Blood 8.6 mg/dL (8.5-10.1); Chloride, Blood 98 mmol/L (98-108); Creatinine, Blood 1.15 mg/dL (0.40-1.00); Glomerular Filtration Rate 51 (60-); Glucose, Blood 118 mg/dL (70-99); Magnesium, Blood 1.4 mg/dL (1.6-2.4); Potassium, Blood 3.4 mmol/L (3.5-5.5); Sodium, Blood 136 mmol/L (136-145)
--- NOTE | 2020-04-18 07:31 | NUR ---
shift superintendent summary pt a/o x4. sbc w/ fww to the bathroom. tele sr in the 70's per telephone interviewer. pt denies chest pain, chest pressure. cpap at night. sob with exertion. no acute changes. report given to oncoming rn.
--- NOTE | 2020-04-18 16:30 | NUR ---
SHIFT SUMMARY PT AOX4. CALLS APPROPRIATELY. PT AWAITS FOR PLACEMENT TO SNF. PT USES FWW WITH STANDBY ASSIST. PT WAS SEEN BY SPEECH TODAY- PT STATED PROBLEM SWALLOWING- PT WILL HAVE AN XRAY ESOPHAGUS TODAY. PT IS NPO RIGHT NOW. PT HAS POWERGLIDE ON TONI. PT IS RA, AND NSR ON TELE. BED IS IN THE LOWEST POSITION AND CALL LIGHT WITHIN REACH
--- NOTE | 2020-04-18 18:37 | NUR ---
04/18/[address] Llanos today, medically stable for discharge, needing placment in SNF. Yesterday plan for snf was denied by Shy, card decorator of [place]. All 10 facilites denied due to Alcohol consumption noted in medical records. Rosy from Care management reaching out to additional facilities today. No ETA for discharge at this time. I will continue to follow for discharge planning. cp
--- NOTE | 2020-04-18 20:40 | NUR ---
BLOOD GLUCOSE: PATIENT IS NPO FOR BARRIUM SWALLOW IN AM. BLOOD GLUCOSE IS 104. MERARI PAGE ROVING MARKER IS NOTIFIED AND AN ORDER FOR IVF WAS REQUESTED. ORDER OBTAINED WAS TO CHECK BLOOD GLUCOSE PRN FOR S/S OF HYPOGLYCEMIA.
[2020-04-19 06:29] LABS: Hematocrit 30.4 % (33.0-51.0); Hemoglobin 9.8 g/dL (11.5-16.0)
[2020-04-19 06:43] LABS: Albumin, Blood 1.8 g/dL (3.4-5.0); Anion Gap 5 mmol/L (6-16); Blood Urea Nitrogen 19 mg/dL (8-24); Bun/Creatinine Ratio 17.6 (12.0-20.0); CO2, Blood 33 mmol/L (21-32); Calcium, Blood 8.6 mg/dL (8.5-10.1); Chloride, Blood 100 mmol/L (98-108); Creatinine, Blood 1.08 mg/dL (0.40-1.00); Glomerular Filtration Rate 55 (60-); Glucose, Blood 122 mg/dL (70-99); Magnesium, Blood 2.4 mg/dL (1.6-2.4); Phosphorus, Blood 4.1 mg/dL (2.5-4.9); Potassium, Blood 3.8 mmol/L (3.5-5.5); Sodium, Blood 138 mmol/L (136-145)
--- NOTE | 2020-04-19 14:05 | NUR ---
BARIUM SWALLOW COMPLETED THIS AM. ST STATE PT HIGH ASP RISK RECOMMENDING PEG TUBE HOWEVER PT DECLINES FEEDING TUBE @ THIS TIME. ST DISCUSSED RISKS w & HER DAUGHTER VIA PHONE. DR WYNNE NOTIFIED, STATE PT MAY EAT @ HER OWN RISK, ORDER [facility] SOFT DIET.
--- NOTE | 2020-04-19 15:14 | NUR ---
SUMMARY PT IS A/O X4, PLEASANT AFFECT. SHE IS UP w SBA FWW TO CHAIR/BSC. SHE PARTICIPATED w PT/OT TODAY. THIS AM SHE WENT OUT TO RADIOLOGY FOR BARIUM SWALLOW R/T POSSIBLE ASPIRATION PNEUMONIA. SPEECH THERAPIST STATE STUDY SHOW RISK OF ASPIRATION, RECOMMEND PEG TUBE PLACEMENT HOWEVER PT DECLINES @ THIS TIME. PATIENT & ST DISCUSSED RESULTS OF TEST, RISKS OF EATING/DRINKING w PT'S DAUGHTER VIA TELEPHONE. DR WYNNE STATE PT MAY HAVE DIET, ORDER MECH SOFT. SHE IS TAKING CAUTIOUSLY. TELE REPORT NSR 70'S. VSS/AFEBRILE.
--- NOTE | 2020-04-20 05:38 | NUR ---
SHIFT SUMMARY: A&OX3, SOB WITH ACTIVITY. UP TO THE BATHROOM WITH SBA X1. MAINTAINED STATS IN HIGH 90'S WITH CPAP DURING SLEEP AND 92-95% ON RA WHILE AWAKE. PATIENT UNDERSTANDS THAT SPEECH THERAPY HAS RECOMMENDED A PEG TUBE. PATIENT IS SITTING UP IN CHAIR OR EDGE OF BED FOR MEALS AND CONCENTRATING ON MINDFULL EATING. WITH SMALLER BITES AND COMPLETE SWALLOWING. NO COUGHING OBSERVED DURING MEAL OR SOURCER. VSS.
[2020-04-20 06:01] LABS: Hematocrit 29.3 % (33.0-51.0); Hemoglobin 9.3 g/dL (11.5-16.0)
[2020-04-20 06:18] LABS: Albumin, Blood 1.8 g/dL (3.4-5.0); Anion Gap 6 mmol/L (6-16); Blood Urea Nitrogen 19 mg/dL (8-24); Bun/Creatinine Ratio 18.3 (12.0-20.0); CO2, Blood 32 mmol/L (21-32); Calcium, Blood 8.2 mg/dL (8.5-10.1); Chloride, Blood 99 mmol/L (98-108); Creatinine, Blood 1.04 mg/dL (0.40-1.00); Glomerular Filtration Rate 57 (60-); Glucose, Blood 108 mg/dL (70-99); Magnesium, Blood 1.6 mg/dL (1.6-2.4); Phosphorus, Blood 3.7 mg/dL (2.5-4.9); Potassium, Blood 3.5 mmol/L (3.5-5.5); Sodium, Blood 137 mmol/L (136-145)
--- NOTE | 2020-04-20 16:27 | NUR ---
ADMIT: 04/09/20 DISCHARGE: 04/21/20 DX: Hypoxia, Sepsis CC: [email or web address] ADMIT: 08/16/17 DISCHARGE: 08/18/17 NICA CALL: Call home for niac, 1 week follow up, Telehealth is a option. RESIDENCE: home- apartment, no stairs, 1 level. CAREGIVER: self Has a friend that can help get her to Drs appointments and to grocery store. DX: alcoholism, cirrhosis, HTN, GERD, Type 2 DM see list DME: DM supplies, adult pull ups, grab bars, shower chair, see list CCM: Referral 2018 HOME HEALTH: [facility] Home health ordered for PT RORY Soto, speech SUMMARY: 04/09/20 04/19/20 Lost snf recommendation today, plan for discharge home on Thursday Arranged Taxi ride paid by Liza Discussed out patient alcohol treatment- not interested Ordered home health from Janice De Jesus confirmed receipt Placed call to meals on wheels, needs soft diet. Gave number to Stefanie to call on Thursday. Reviewed [place] nica call on Thursday or Thursday, will schedule f/u appointment 1 week.
--- NOTE | 2020-04-20 19:52 | NUR ---
SUMMARY PT IS A/O X4, PLEASANT/COOPERATIVE. SHE HAS BEEN UP IN CHAIR OR SITTING ON BEDSIDE FOR MEALS. SHE WAS UP AMBULATING W JACOBO, PARTICIPATED W CASINO RUNNER. SPEECH THERAPY IN THIS AM TO WORK W HER R/T SWALLOW TECHNIQUES TO REDUCE RISK OF ASPIRATION. SHE HAS NOT HAD ANY NOTICABLE SWALLOWING ISSUES TODAY w MECHSOFT DIET & THIN LIQUIDS. LIPASE CONTINUES ELEVATED. DR WYNNE STATE NO D/C TODAY, POSSIBLY TOMORROW, [facility] DERMATOPATHOLOGIST MET w PT THIS AFTERNOON IN PREP FOR D/C, STATE PT ADVOCATE APPROVE [facility] TRANSPORTATION HOME TOMORROW, BILLBOARD ERECTOR HELPER NOTIFIED.
--- NOTE | 2020-04-21 03:30 | NUR ---
SEE SUPERVISOR SUMMARY PT A&OX4, ABLE TO MAKE NEEDS KNOWN. PLEASANT AND COOPERATIVE TO CARE. NO ACUTE CHANGES NOTED TO PT THIS SHIFT. NO C/O PAIN OR ANY DISCOMFORT, DENIED CP, SOB OR N&V. PT IS A SBA TO THE BATHROOM. PT ON CONT BIOX SATS >93-95%. PT USED CPAP AT NIGHT. PT CALM AND RESTED IN BED T/O SHIFT. BED AT LOWEST POSITION. CALL LIGHT WITHIN REACH.
[2020-04-21 05:08] LABS: Hematocrit 28.8 % (33.0-51.0); Hemoglobin 9.2 g/dL (11.5-16.0)
[2020-04-21 05:25] LABS: Albumin, Blood 1.9 g/dL (3.4-5.0); Anion Gap 7 mmol/L (6-16); Blood Urea Nitrogen 18 mg/dL (8-24); Bun/Creatinine Ratio 15.4 (12.0-20.0); CO2, Blood 31 mmol/L (21-32); Calcium, Blood 8.2 mg/dL (8.5-10.1); Chloride, Blood 99 mmol/L (98-108); Creatinine, Blood 1.17 mg/dL (0.40-1.00); Glomerular Filtration Rate 50 (60-); Glucose, Blood 115 mg/dL (70-99); Magnesium, Blood 1.5 mg/dL (1.6-2.4); Phosphorus, Blood 3.8 mg/dL (2.5-4.9); Potassium, Blood 3.7 mmol/L (3.5-5.5); Sodium, Blood 137 mmol/L (136-145)
--- NOTE | 2020-04-21 19:34 | NUR ---
SHIFT SUMMARY: NO ACUTE CHANGES TO REPORT THIS SHIFT. PT A&O; CALM AND COOPERATIVE WITH CARE. NO C/O PAIN THIS SHIFT. TELE IN PLACE; SR IN 70s PER MEDICAL SALES ASSOCIATE. EXPECTED D/C HOME WITH HOME HEALTH 04/22. REPORT GIVEN TO ONCOMING RN.
--- NOTE | 2020-04-22 04:04 | NUR ---
CORPORATE COMPLIANCE DIRECTOR SUMMARY PT A&OX4, ABLE TO MAKE NEEDS KNOWN. PLEASANT AND COOPERATIVE TO CARE. PT INDEPENDENT IN THE ROOM. NO C/O PAIN OR ANY DISCOMFORT. NO C/O SOB, CP, OR N&V. PT ON CPAP AT NIGHT DURING SLEEP, ON CONT BIOX SATS >92%. PT CALM AND RESTED IN BED T/O SHIFT, NO ACUTE CHANGES NOTED TO PT. BED AT LOWEST POSITION. CALL LIGHT WITHIN REACH. POSSIBLE DISCHARGE TODAY 04/22/20.
[2020-04-22 09:05] LABS: Anion Gap 6 mmol/L (6-16); Blood Urea Nitrogen 17 mg/dL (8-24); Bun/Creatinine Ratio 15.6 (12.0-20.0); CO2, Blood 31 mmol/L (21-32); Calcium, Blood 8.2 mg/dL (8.5-10.1); Chloride, Blood 101 mmol/L (98-108); Creatinine, Blood 1.09 mg/dL (0.40-1.00); Glomerular Filtration Rate 54 (60-); Glucose, Blood 123 mg/dL (70-99); Magnesium, Blood 1.8 mg/dL (1.6-2.4); Phosphorus, Blood 3.9 mg/dL (2.5-4.9); Potassium, Blood 3.6 mmol/L (3.5-5.5); Sodium, Blood 138 mmol/L (136-145)
[2020-04-22] MEDS ORDERED: METO25ER PO (15:28)
[2020-04-22] MEDS ORDERED: MIRALAX17 GM PO (15:28)
[2020-04-22] MEDS ORDERED: XARELTO20 MG PO (15:28)
[2020-04-22] MEDS ORDERED: BUSP5 PO (15:29)
--- NOTE | 2020-04-22 16:39 | NUR ---
PATIENT DISCHARGED TO HOME UNACCOMPANIED VIA CAB, CAYLA APPROVED BY Santos GARVIN PATIENT ADVOCATE. POWERGLIDE IV REMOVED, PROLONGED PRESSURE NEEDED TO STOP BLEEDING. VERBALIZED UNDERSTANDING OF D/C INSTRUCTIONS. OFF UNIT AT 1630 VIA W/C. NO PERSONAL BELONGINS LEFT BEHIND IN ROOM.
== END 2020-04-22 16:29 | disposition home health service (06) | DRG 871 ==
LOC: ER 09:53 → PCU 14:35 → MEDS 14:35 → ER 15:40 → PCU 16:20 → MEDS 04-16 17:10
PROVIDERS: Emergency Medicine; Family Medicine; Hospitalist; Internal Medicine; Internal Medicine Cardiovascular Disease; Internal Medicine Nephrology; Physician Assistant; ADMIT Family Medicine
PROC: 5A09357 Assistance with Respiratory Ventilation, Less than 24 Consecutive Hours, Continuous Positive Airway Pressure (ICD-10-PCS; principal; 2020-04-09)
DX: A41.01 Sepsis due to Methicillin susceptible Staphylococcus aureus (principal); J18.9 Pneumonia, unspecified organism; J69.0 Pneumonitis due to inhalation of food and vomit; K85.20 Alcohol induced acute pancreatitis without necrosis or infection; I50.33 Acute on chronic diastolic (congestive) heart failure; I13.0 Hypertensive heart and chronic kidney disease with heart failure and stage 1 through stage 4 chronic kidney disease, or unspecified chronic kidney disease; N39.0 Urinary tract infection, site not specified; I24.8 Other forms of acute ischemic heart disease; F10.230 Alcohol dependence with withdrawal, uncomplicated; N17.9 Acute kidney failure, unspecified; E87.0 Hyperosmolality and hypernatremia; E03.9 Hypothyroidism, unspecified; R56.9 Unspecified convulsions; Z20.822 Contact with and (suspected) exposure to COVID-19; Z79.4 Long term (current) use of insulin; E11.22 Type 2 diabetes mellitus with diabetic chronic kidney disease; E11.65 Type 2 diabetes mellitus with hyperglycemia; N18.30 Chronic kidney disease, stage 3 unspecified; E78.5 Hyperlipidemia, unspecified; G47.33 Obstructive sleep apnea (adult) (pediatric); L40.9 Psoriasis, unspecified; Z66 Do not resuscitate; Z87.891 Personal history of nicotine dependence; E66.01 Morbid (severe) obesity due to excess calories; Z68.39 Body mass index [BMI] 39.0-39.9, adult; K21.9 Gastro-esophageal reflux disease without esophagitis; F41.8 Other specified anxiety disorders; K74.60 Unspecified cirrhosis of liver; E87.6 Hypokalemia; D69.6 Thrombocytopenia, unspecified; B37.9 Candidiasis, unspecified; D63.1 Anemia in chronic kidney disease; B96.20 Unspecified Escherichia coli [E. coli] as the cause of diseases classified elsewhere; E83.42 Hypomagnesemia
CPT/HCPCS: 0241U; 36415; 71045; 74230; 76705; 76770; 80048; 80053; 80069; 80202; 81001; 81050; 82607; 82947; 83605; 83690; 83735; 84100; 84156; 84443; 84450; 84460; 84484; 85014; 85018; 85025; 87040; 87077; 87086; 87147; 87186; 92526; 92610; 92611; 93005; 93010; 93306; 94640; 94660; 94760; 94762; 96365; 96375; 96376; 97110; 97112; 97116; 97162; 97166; 97530; 97535; 99285-25; A9270; G0480; J0696; J0881; J1650; J1940; J2060; J2270; J2405; J2543; J3370; J3411; J3475; J3480; J7030; J7042; J7050; J7070

== ENCOUNTER 2020-05-21 16:32 | Inpatient (IN) | payer OTHER, MEDICARE ==
[~2020-05-21] VITALS: Ht 172.7 cm; Wt 120.5 kg
[~2020-05-21 16:32] MED LIST changes: -ACAMPROSATE CA333 MG PO; -ALDACTONE25 MG PO; -ASPI81CH PO; -ATENOLOL25 MG PO; -ATOR20 PO; -FERROUS SULFAT325 M3 PO; -FURO80 PO; -LANOXIN PO; -MIDO5 PO; -MULVITA PO; -PRED5 PO; -PROAIR DIGIHAL90 MCG IH; -SPIRIVA RESPIMAT4 G3 INH; -THERA-D2000 UNIT PO; -TIOT18 INH; -Triamcinolone A15 G4 TOP; -XARELTO20 M1 PO
[2020-05-21 17:10] LABS: BASOPHILS PERCENT AUTO 1 % (0-2); EOSINOPHILS ABSOLUTE AUTO 0.16 K/mm3 (0.00-0.68); EOSINOPHILS PERCENT AUTO 1 % (0-6); IMMATURE GRAN ABSOLUTE AUTO 0.09 K/mm3 (0.00-0.10); IMMATURE GRAN PERCENT AUTO 1 % (0-1); LYMPHOCYTES ABSOLUTE AUTO 1.58 K/mm3 (0.84-5.20); LYMPHOCYTES PERCENT AUTO 11 % (21-46); MONOCYTES ABSOLUTE AUTO 1.49 K/mm3 (0.16-1.47); MONOCYTES PERCENT AUTO 11 % (4-13); Mean Corpuscular HGB 32.3 pg (26.0-34.0); Mean Corpuscular HGB Conc 30.5 g/dL (31.5-36.5); Mean Corpuscular Volume 106 fL (80-100); Mean Platelet Volume 9.5 fL (9.1-12.4); NEUTROPHILS ABSOLUTE AUTO 10.81 K/mm3 (1.96-9.15); NEUTROPHILS PERCENT AUTO 76 % (41-73); NRBC ABSOLUTE 0.03 K/mm3 (0.00-0.02); NRBC Auto 0.2 /100 WBC (0.0-0.2); Platelet Count 271 K/mm3 (150-400); RDW Coefficient Variation 18.8 % (11.7-14.2); RDW Standard Deviation 72.9 fL (35.1-46.3); Red Blood Cell Count 1.64 M/mm3 (3.80-5.20); White Blood Cell Count 14.23 K/mm3 (4.00-11.30)
[2020-05-21 17:20] LABS: Hemoglobin 5.3 g/dL (11.5-16.0)
[2020-05-21 17:21] LABS: Hematocrit 17.4 % (33.0-51.0)
[2020-05-21 17:24] LABS: Alanine Aminotransfer (ALT/SGP 56 U/L (12-78); Albumin, Blood 2.2 g/dL (3.4-5.0); Albumin/Globulin Ratio 0.5 (0.8-1.8); Alk Phos 148 U/L (50-136); Anion Gap 14 mmol/L (6-16); Aspartate Aminotrans (AST/SGOT 133 U/L (12-37); Bilirubin, Total 2.1 mg/dL (0.1-1.0); Blood Urea Nitrogen 9 mg/dL (8-24); CO2, Blood 20 mmol/L (21-32); Chloride, Blood 103 mmol/L (98-108); Globulin, Blood 4.7 g/dL (2.2-4.0); Glomerular Filtration Rate >60 (60-); Glucose, Blood 117 mg/dL (70-99); Potassium, Blood 3.3 mmol/L (3.5-5.5); Sodium, Blood 137 mmol/L (136-145); Total Protein, Blood 6.9 g/dL (6.4-8.2)
[2020-05-21] MEDS ORDERED: TIOT18 INH (17:58)
[2020-05-21 18:00] LABS: International Normalized Ratio 2.24; Prothrombin Time Results 22.9 Sec (9.7-11.5)
[2020-05-21] MEDS ORDERED: PROAIR DIGIHAL90 MCG IH (18:00)
[2020-05-21] MEDS ORDERED: AMLO10 PO (18:04)
[2020-05-21 19:41] LABS: Source, Urine Clean Catch
[2020-05-21 19:44] LABS: Bilirubin, Urine Neg (Neg); Blood, Urine 5+ (Neg); Glucose Qualitative, Urine Neg (Neg); Ketones, Urine Neg (Neg); Leukocyte Esterase, Urine Neg (Neg); Nitrite, Urine Neg (Neg); Protein, Urine Neg (Neg); Urobilinogen, Urine NORM (Normal); pH, Urine 6.5 (5.0-8.0)
[2020-05-21 19:45] LABS: Appearance, Urine Clear (Clear); Color, Urine Yellow (P-Yellow)
[2020-05-21 19:49] LABS: White Blood Cells, Urine 0-2 /hpf (0-5)
[2020-05-21 19:50] LABS: Bacteria Few /hpf; Squamous Epithelial Cells Few /hpf (Few)
[2020-05-21] MEDS ORDERED: XARELTO20 M1 PO (20:31)
[2020-05-21] MEDS ORDERED: FURO80 PO (20:34)
[2020-05-21] MEDS ORDERED: CLON.1 PO (22:59)
--- NOTE | 2020-05-21 23:08 | NUR ---
2049 PT ARRIVED TO ROOM FROM ER VIA ABIGAIL IN STABLE CONDITION. REPORTS BACK AND HEAD PAIN, DECLINES TYLENOL, SAYS SHE IS NOT SUPPOSED TO TAKE IT R/T TO HER CIRRHOSIS AND THAT IT DOES NOTHING TO HELP ANYWAYS. REPORTS SOB THAT INCREASES WITH EXERTION, ON RA AT 98%. PT REPORTS NAUSEA BUT STATES SHE IS HUNGRY. CLEANING PROFESSIONAL GETTING PT SOME FOOD. WILL SPEAK WITH DR BOWEN SOMETHING FOR THE PT'S BACK AND HEAD PAIN, PT DECLINES HEATING PAD AND ICE PACK FOR NOW. WILL EVALUATE NAUSEA AFTER PT EATS SOMETHING. BS WAS 120, TELE IS NSR WITH PVC'S AT 93 PER TELE OPERATING COST CLERK. NO OTHER APPARENT SIGNS OF DISTRESS. CALL LIGHT IS IN REACH.
--- NOTE | 2020-05-22 00:35 | NUR ---
PT LYING IN BED, AWAKE, REQUESTING SOMETHING FOR PAIN, WILL CALL NO OTHER APPARENT SIGNS OF DISTRESS. CALL LIGHT IS IN REACH.
--- NOTE | 2020-05-22 03:32 | NUR ---
0156 PT REQUESTED AND RECIEVED PAIN MEDS, WILL EVAL FOR EFFECT. NO OTHER APPARENT SIGNS OF DISTRESS. CALL LIGHT IS IN REACH.
--- NOTE | 2020-05-22 03:32 | NUR ---
ASSISTED PT TO BSC AND BACK TO SITTING ON EDGE OF BED. PT PASSED SEVERAL SMALL BOOD CLOTS AND ONE LARGE ONE FROM VAGINAL BLEEDING MIXED IN WITH URINE. IAN AREA OF PULL UPS WAS 90% SATURATED WITH BRIGHT RED TO MED RED BLOOD. CHANGED PULL UP. PT STATES THAT PAIN MED MADE HER SWEAT, CHEMISTRY TECHNICIAN GAVE PT ICE PACK TO TRY. WILL EVAL FOR EFFECT. NO OTHER APPARENT SIGNS OF DISTRESS. CALL LIGHT IS IN REACH.
--- NOTE | 2020-05-22 03:37 | NUR ---
PT IS AAO X 4, ON RA AT 95%. PT REPORTS HEADACHE AND PAIN ALL OVER. GOT FENTANYL X 1, PT REPORTS NAUSEA, GOT ZOFRAN X 1. PT REPORTS SOB THAT INCREASES WITH EXERTION. TELE IS NSR WITH PVC'S. BS WAS 120. CIWA 3-4.
[2020-05-22 04:56] LABS: BASOPHILS ABSOLUTE AUTO 0.04 K/mm3 (0.00-0.23); BASOPHILS PERCENT AUTO 0 % (0-2); EOSINOPHILS ABSOLUTE AUTO 0.03 K/mm3 (0.00-0.68); EOSINOPHILS PERCENT AUTO 0 % (0-6); IMMATURE GRAN ABSOLUTE AUTO 0.05 K/mm3 (0.00-0.10); IMMATURE GRAN PERCENT AUTO 1 % (0-1); LYMPHOCYTES ABSOLUTE AUTO 0.92 K/mm3 (0.84-5.20); LYMPHOCYTES PERCENT AUTO 10 % (21-46); MONOCYTES PERCENT AUTO 12 % (4-13); Mean Corpuscular HGB 31.7 pg (26.0-34.0); Mean Corpuscular HGB Conc 30.7 g/dL (31.5-36.5); Mean Corpuscular Volume 103 fL (80-100); Mean Platelet Volume 9.9 fL (9.1-12.4); NEUTROPHILS ABSOLUTE AUTO 7.27 K/mm3 (1.96-9.15); NEUTROPHILS PERCENT AUTO 77 % (41-73); Platelet Count 161 K/mm3 (150-400); RDW Coefficient Variation 18.7 % (11.7-14.2); RDW Standard Deviation 68.9 fL (35.1-46.3); Red Blood Cell Count 1.23 M/mm3 (3.80-5.20); White Blood Cell Count 9.41 K/mm3 (4.00-11.30)
[2020-05-22 05:04] LABS: Hematocrit 12.7 % (33.0-51.0); Hemoglobin 3.9 g/dL (11.5-16.0)
--- NOTE | 2020-05-22 05:16 | NUR ---
ABOUT 0445 PT PASSED SEVERAL LARGE CLOTS FROM VAGINAL BLEEDING, IN COMBINATION WITH PREVIOUS CLOTS FROM PREVIOUS BSC USE, IT WAS A TOTAL OF ABOUT 400 ML ESTIMATED.
[2020-05-22 05:26] LABS: Alanine Aminotransfer (ALT/SGP 45 U/L (12-78); Albumin, Blood 1.9 g/dL (3.4-5.0); Albumin/Globulin Ratio 0.5 (0.8-1.8); Alk Phos 112 U/L (50-136); Anion Gap 12 mmol/L (6-16); Aspartate Aminotrans (AST/SGOT 110 U/L (12-37); Bilirubin, Total 1.9 mg/dL (0.1-1.0); Blood Urea Nitrogen 11 mg/dL (8-24); Bun/Creatinine Ratio 11.2 (12.0-20.0); CO2, Blood 24 mmol/L (21-32); Calcium, Blood 7.4 mg/dL (8.5-10.1); Chloride, Blood 103 mmol/L (98-108); Creatinine, Blood 0.98 mg/dL (0.40-1.00); Globulin, Blood 3.8 g/dL (2.2-4.0); Glomerular Filtration Rate >60 (60-); Glucose, Blood 138 mg/dL (70-99); Potassium, Blood 3.2 mmol/L (3.5-5.5); Sodium, Blood 139 mmol/L (136-145); Total Protein, Blood 5.7 g/dL (6.4-8.2)
--- NOTE | 2020-05-22 05:37 | NUR ---
PTS HGB THIS MORNIG IS 3.9 AND HCT IS 12.7, DISCUSSED THIS WITH THE PT THAT IT MIGHT BE TOO LOW TO TRY AND TREAT WITH OTHER THINGS BESIDES BLOOD PRODUCTS. PT STATES SHE STILL DOES NOT WANT BLOOD PRODUCTS. I ASKED HER EVEN IF IT MEANT HER LIFE, SHE SAID YES, EVEN IF IT MEANT HER LIFE SHE DID NOT WANT BLOOD PRODUCTS. PT'S BP IS 89/57. CALLED DR TO LET THEM KNOW ABOUT THE RESULTS AND THE CONVERSATION WITH THE PT. NO NEW ORDERS AT THIS TIME R/T HER WISH FOR NO BLOOD PRODUCTS. PT LYING IN BED, EYES CLOSED, WAKES EASILY TO VERBAL STIMULI. NO OTHER APPARENT SIGNS OF DISTRESS. CALL LIGHT IS IN REACH. NO OTHER CHANGES THIS SHIFT.
--- NOTE | 2020-05-22 06:26 | NUR ---
SPOKE WITH DR CONDE. SHE WILL BE IN TO SEE PT SOON, SHE WOULD LIKE TO GET THE PT ON THE SCHEDULE FOR A PROCEDURE TODAY. I WILL LET THE PT KNOW.
[2020-05-22 07:38] LABS: Influenza A, PCR NEGATIVE (NEGATIVE); Influenza B, PCR NEGATIVE (NEGATIVE); Resp Syncytial Virus, PCR NEGATIVE (NEGATIVE); SARS-Cov-2 (COVID-19) PCR, MMC NEGATIVE (NEGATIVE)
--- NOTE | 2020-05-22 09:24 | NUR ---
PATIENT TRANSFER PATIENT TRANSFERED TO SURGERY AT SHIFT CHANGE. PATIENT TRANSFERED TO SURGICAL AFTER SURGERY. REPORT GIVEN TO MARY KAY HUFFMAN.
--- NOTE | 2020-05-22 09:44 | NUR ---
TRANSFER PT ARRIVED TO UNIT AT APROX 0915 FROM PACU POD 0 D+C. IAN PAD IN PLACE WITH NO BLEEDING AT TIME OF ARRIVAL. PT DENIES PAIN AT THIS TIME. DENIES DIZZINESS AT THIS TIME. REPORTS THAT SHE DRINKS 4 BEERS A DAY AND STATES THAT THE LAST TIME SHE "QUITE COLD TURKEY" THAT SHE "HAD SEIZURES". CIWA OF 0 AT TIME OF ARRIVAL.
[2020-05-22 09:46] LABS: BASOPHILS ABSOLUTE AUTO 0.02 K/mm3 (0.00-0.23); BASOPHILS PERCENT AUTO 0 % (0-2); EOSINOPHILS ABSOLUTE AUTO 0.03 K/mm3 (0.00-0.68); EOSINOPHILS PERCENT AUTO 0 % (0-6); IMMATURE GRAN PERCENT AUTO 1 % (0-1); LYMPHOCYTES ABSOLUTE AUTO 0.92 K/mm3 (0.84-5.20); LYMPHOCYTES PERCENT AUTO 10 % (21-46); MONOCYTES ABSOLUTE AUTO 1.13 K/mm3 (0.16-1.47); MONOCYTES PERCENT AUTO 13 % (4-13); Mean Corpuscular HGB 31.8 pg (26.0-34.0); Mean Corpuscular HGB Conc 31.2 g/dL (31.5-36.5); Mean Corpuscular Volume 102 fL (80-100); Mean Platelet Volume 9.9 fL (9.1-12.4); NEUTROPHILS ABSOLUTE AUTO 6.65 K/mm3 (1.96-9.15); NEUTROPHILS PERCENT AUTO 75 % (41-73); Platelet Count 160 K/mm3 (150-400); RDW Coefficient Variation 18.8 % (11.7-14.2); RDW Standard Deviation 68.2 fL (35.1-46.3); Red Blood Cell Count 1.07 M/mm3 (3.80-5.20); White Blood Cell Count 8.85 K/mm3 (4.00-11.30)
[2020-05-22 09:52] LABS: Hemoglobin 3.4 g/dL (11.5-16.0)
[2020-05-22 09:53] LABS: Hematocrit 10.9 % (33.0-51.0)
--- NOTE | 2020-05-22 13:40 | NUR ---
HYPOTENSION PT HAS BEEN HYPOTENSION SINCE COMING FROM PACU AND VITALS HAVE BEEN THE SAME SINCE BEFORE D&C. THIS RN DISCUSSED WITH DR. CASTANON AND ANDREA, PROPERTY MAINTENANCE TECHNICIAN AND AFTER DISCUSSION, DR. CASTANON ORDERED PT TO BE TRASNFERRED TO ICU IF PT'S BLOOD PRESSURE DROPS BELOW 90 SYSTOLICLY. PT IS ALERT AND ORIENTED X4. PT EATING WITHOUT DIFFICULTY. NO ACUTE DISTRESS AT THIS TIME. CALL LIGHT IN REACH. WILL CONTINUE TO MONITOR BLOOD PRESSURE.
--- NOTE | 2020-05-22 17:21 | NUR ---
SHIFT SUMMARY PT HAD A D&C THIS AM AND WAS TRANSFERRED TO SURGICAL FLOOR THIS AM. PT HAS BEEN ALERT AND ORIENTED X4. PT'S BLOOD PRESSURE HAS BEEN LOW THROUGH OUT THE SHIFT IN THE 90'S SYSTOLICLY. PT HAS SMALL AMOUNT OF BLOOD PASSING VAGINALLY AND ONE EPISODE OF A SMALL CLOT WHEN USING THE BEDPAN. IVF INFUSING PER ORDERS. PT HAS HAD A GOOD APPETITE. BLOOD SUGARS WNL. NO ACUTE CHANGES AT THIS TIME. WILL CONTINUE TO MONITOR BLOOD PRESSURE. CALL LIGHT IN REACH.
--- NOTE | 2020-05-22 19:54 | NUR ---
DRESSING TO IV CHANGED. CLOT PRESENT AROUND INSERTION SITE. MINIMAL LEAKAGE AFTER DRESSING CHANGE. PT REPORTS DISTENDED ABDOMEN IS NORMAL AND STATES THAT SHE HAS NOT HAD ANY FLUID REMOVED EXPLAINING THAT THE DR HAS TOLD HER SHE REALLY DOESN'T HAVE ANY FLUID COLLECTED IN HER ABDOMEN.
[2020-05-23 05:58] LABS: International Normalized Ratio 2.06; Prothrombin Time Results 21.2 Sec (9.7-11.5)
[2020-05-23 06:07] LABS: BASOPHILS ABSOLUTE AUTO 0.02 K/mm3 (0.00-0.23); BASOPHILS PERCENT AUTO 0 % (0-2); EOSINOPHILS ABSOLUTE AUTO 0.13 K/mm3 (0.00-0.68); EOSINOPHILS PERCENT AUTO 2 % (0-6); IMMATURE GRAN ABSOLUTE AUTO 0.05 K/mm3 (0.00-0.10); IMMATURE GRAN PERCENT AUTO 1 % (0-1); LYMPHOCYTES ABSOLUTE AUTO 0.89 K/mm3 (0.84-5.20); LYMPHOCYTES PERCENT AUTO 11 % (21-46); MONOCYTES ABSOLUTE AUTO 1.08 K/mm3 (0.16-1.47); MONOCYTES PERCENT AUTO 14 % (4-13); Mean Corpuscular HGB 32.4 pg (26.0-34.0); Mean Corpuscular Volume 105 fL (80-100); Mean Platelet Volume 9.9 fL (9.1-12.4); NEUTROPHILS ABSOLUTE AUTO 5.67 K/mm3 (1.96-9.15); NEUTROPHILS PERCENT AUTO 72 % (41-73); NRBC ABSOLUTE 0.04 K/mm3 (0.00-0.02); NRBC Auto 0.5 /100 WBC (0.0-0.2); Platelet Count 131 K/mm3 (150-400); RDW Coefficient Variation 18.6 % (11.7-14.2); RDW Standard Deviation 69.3 fL (35.1-46.3); Red Blood Cell Count 1.08 M/mm3 (3.80-5.20); White Blood Cell Count 7.84 K/mm3 (4.00-11.30)
[2020-05-23 06:09] LABS: Hematocrit 11.3 % (33.0-51.0)
[2020-05-23 06:11] LABS: Albumin, Blood 1.8 g/dL (3.4-5.0); Albumin/Globulin Ratio 0.5 (0.8-1.8); Bilirubin, Total 2.1 mg/dL (0.1-1.0); Bun/Creatinine Ratio 15.4 (12.0-20.0); Calcium, Blood 7.3 mg/dL (8.5-10.1); Creatinine, Blood 1.04 mg/dL (0.40-1.00); Globulin, Blood 3.3 g/dL (2.2-4.0); Hemoglobin 3.5 g/dL (11.5-16.0); Potassium, Blood 3.5 mmol/L (3.5-5.5); Total Protein, Blood 5.1 g/dL (6.4-8.2)
--- NOTE | 2020-05-23 09:33 | NUR ---
05/23/20 0932 Jody Lemos IUD PLACED BY DR CONDE PRIOR TO END OF PROCEDURE. LOT # [id number] EXP 09/12/22
--- NOTE | 2020-05-23 15:27 | NUR ---
ANTIFUNGAL CREAM PATIENT HAVING REDNESS IN BREAST FOLDS AND GROIN/IAN AREAS. RECEIVED T.O. FROM DR. CASTANON FOR MICONAZOLE ANTIFUNGAL CREAM BID. EMAR UPDATED.
--- NOTE | 2020-05-23 16:10 | NUR ---
CARE COORDINATION REFERRAL - ADMIT:05/21/20 DISCHARGE: DX: SEVERE ANEMIA CC: KWILCOX ADMIT: 08/16/17 DISCHARGE: 08/18/17 NICA CALL:CALL HOME FOR NICA, 1 WEEK FOLLOW UP, TELEHEALTH IS A OPTION. RESIDENCE: HOME- APARTMENT, NO STAIRS, 1 LEVEL. CAREGIVER:SELF HAS A FRIEND THAT CAN HELP GET HER TO DRS APPOINTMENTS AND TO GROCERY STORE. DX: ALCOHOLISM, CIRRHOSIS, HTN, GERD, TYPE 2 DM SEE LIST DME: ADULT PULL UPS, DM SUPPLIES, COMPRESSION HOSE, EXTENSION GRABBER, RAISED TOILET SEAT, GRAB BARS, WALKER WITH ROLLATOR, SHOWER CHAIR CCM: REFERRAL 2018 HOME HEALTH: [facility]- 04/23/2020 SUMMARY: 05/23/20- PER CHART REVIEW, PT HAS HAD LOW GRADE TEMP TODAY. DR. SONIA BUI SAW PT WHO REPORT DECREASE OF BLEEDING SINCE D&C AND IUD PLACEMENT YESTERDAY. PT'S CIWA = 0. PER CHART REVIEW WITH DR. CASTANON, PT IS NOT STABLE FOR DISCHARGE. HER HEMOGLOBIN NEEDS TO IMPROVE BEFORE SHE CAN GO HOME. PT HAS REFUSED BLOOD PRODUCTS DUE TO SHINTO VIEWS.-CRIS 05/22/20- PT HAD D&C COMPLETED THIS MORNING-KWAMEW
--- NOTE | 2020-05-23 17:13 | NUR ---
Shift Summary A/Ox4, pleasant and cooperative. Post D&C day #1. Extremely tired and fatigued, dyspnea with minimal exertion such as talking and lifting arms agains gravity. Had a bed bath. Some vaginal bleeding still occuring, no clots noted. Peripad changed x 3, minimally saturated. Patient has psoriasis scatted throughout and yeast infections in groin/breast folds. Topical meds ordered and given. Tele: ST PAC's PVC's @ 103. RA with sats between 90-100%, continuous biox on. CIWA between 0-3. Dressings to BLE are C/D/I. Other than tachycardia, VS remain stable. C/O back pain but refused pain meds because patient states "it won't work." Continuous NS @ 75. C/O dizziness and shortness of breath. Denies nausea, vomiting, hallucination. Follows directions well, on bedrest.
--- NOTE | 2020-05-24 04:31 | NUR ---
PT REPOSITIONING FOR COMFORT.DECLINES PAIN MEDS.SYSTOLIC REMAINING 90 OR ABOVE.MAP REMAINS ABOVE 65.REPORTS FEELING BETTER WITH 1-2 L N/C FOR COMFORT.
--- NOTE | 2020-05-24 14:44 | NUR ---
05/24/20- PER CHART REVIEW WITH DR. CASTANON, PT WILL BE IN THE HOSPITAL FOR THE NEXT 2-3 DAYS UNTIL SHE HAS COMPLETED HER IRON INFUSION. PT AND OT EVALS HAVE BEEN ORDERED FOR PT TO HAVE DONE PRIOR TO D/C. -KWAMEW PER CHART REVIEW, PT IS STILL ANEMIC. SHE IS HYPOTENSIVE WITH SYSTOLIC BP IN THE 90'S. DR. YOUSIF IS SEEING PT FOR HER ANEMIA. -CRIS
--- NOTE | 2020-05-24 17:58 | NUR ---
PT AOX4 AND COOPERATIVE OF CARE. PT CAN CALL APPROPRIATELY. PT HAD CREAMS APPLIED TO SKIN RASHES BY THIS MEAT AND SEAFOOD MANAGER. PT STILL HAS SOME VERY MILD VAGINAL SPOTTING. PT HAS NOT STOOD TODAY SHE DOES NOT FEEL VERY STRONG. PT LOOKS PALE AND GETS SHORT OF BREATH WITH ANY KIND OF EXCERTION. PT STARTED HAVING CRAMPS IN HER HANDS IN THE AFTERNOON AND STATED SHE WAS STARTING TO FEEL THEN IN HER LEGS. DR CASTANON WAS NOTIFIED AND HE ADDED MEDICATION TO EMAR. THIS SEEMS TO BE EFFECTIVE AND PT LOOKS LIKE THIS HAS RESOLVED. CALL LIGHT IS WITHIN REACH WILL CONTINUE TO MONITOR.
--- NOTE | 2020-05-25 06:56 | NUR ---
SUMMARY JUST RECEIVED NOTIFICATION FROM [employer] THAT PT IS HAVING RUNS OF SVT 10-15 SECS THEN BACK TO SINUS TACH WITH PACS. Santos WHEELER RN HERE FOR REPORT DURING THIS TIME AND IS CALLING DOCTOR.PT NOT FEELING ANY CHANGES.
--- NOTE | 2020-05-25 07:25 | NUR ---
CALLED DR CASTANON EARLIER PT HAD SEVERAL 10 TO 15 BEATS OF SVT PT WAS ASYMPTOMATIC AT THE TIME NEW ORDERS PLACED
[2020-05-25 07:50] LABS: Mean Corpuscular HGB 32.4 pg (26.0-34.0); Mean Corpuscular HGB Conc 29.4 g/dL (31.5-36.5); Mean Platelet Volume 10.2 fL (9.1-12.4); NRBC ABSOLUTE 0.12 K/mm3 (0.00-0.02); NRBC Auto 1.3 /100 WBC (0.0-0.2); Platelet Count 145 K/mm3 (150-400); RDW Coefficient Variation 20.7 % (11.7-14.2); RDW Standard Deviation 72.1 fL (35.1-46.3); Red Blood Cell Count 1.08 M/mm3 (3.80-5.20); White Blood Cell Count 9.35 K/mm3 (4.00-11.30)
[2020-05-25 07:58] LABS: Hemoglobin 3.5 g/dL (11.5-16.0); Mean Corpuscular Volume 110 fL (80-100)
[2020-05-25 07:59] LABS: Hematocrit 11.9 % (33.0-51.0)
[2020-05-25 08:06] LABS: Albumin, Blood 1.9 g/dL (3.4-5.0); Albumin/Globulin Ratio 0.5 (0.8-1.8); Bilirubin, Total 1.5 mg/dL (0.1-1.0); Bun/Creatinine Ratio 14.7 (12.0-20.0); Calcium, Blood 7.9 mg/dL (8.5-10.1); Creatinine, Blood 1.02 mg/dL (0.40-1.00); Globulin, Blood 3.8 g/dL (2.2-4.0); Magnesium, Blood 1.7 mg/dL (1.6-2.4); Potassium, Blood 3.9 mmol/L (3.5-5.5); Total Protein, Blood 5.7 g/dL (6.4-8.2); Troponin I 0.158 ng/mL (0.000-0.040)
--- NOTE | 2020-05-25 08:13 | NUR ---
PT HAVING NO S/S AT THIS TIME IF SHE BECOMES SYMPTOMATIC TO TRANSFER TO PCU PER DR CASTANON PT ON TELE AT THIS TIME REF BLOOD TRANSFUSION ALSO PALLATIVE CARE CONSULT CALLED AWAITING ECHO
[2020-05-25 08:35] LABS: BASOPHILS PERCENT MAN 0 % (0-2); EOSINOPHILS ABSOLUTE MAN 0.18 K/mm3 (0.00-0.68); EOSINOPHILS PERCENT MAN 2 % (0-6); LYMPHOCYTES ABSOLUTE MAN 1.21 K/mm3 (0.84-5.20); LYMPHOCYTES PERCENT MAN 13 % (21-46); MONOCYTES ABSOLUTE MAN 1.12 K/mm3 (0.16-1.47); MONOCYTES PERCENT MAN 12 % (4-13); NEUTROPHILS ABSOLUTE MAN 6.82 K/mm3 (1.96-9.15); SEG NEUTROPHILS PERCENT MAN 73 % (41-73); TOTAL CELLS COUNTED 100
--- NOTE | 2020-05-25 09:34 | NUR ---
automation technologist at bedside
--- NOTE | 2020-05-25 12:18 | NUR ---
ASIC VERIFICATION ENGINEER RAUL CALLED PT HR [address] CASTANON CALLED EKG STAT AND DIG IVP 0.5 X1 NOW AND TO TRANSFER TO PCU OF PT WANTS PALLATIVE CARE REQ
--- NOTE | 2020-05-25 12:30 | NUR ---
DR MCLEOD BY TO SEE PT MEDS GIVEN AFIB WITH RVR
--- NOTE | 2020-05-25 14:05 | NUR ---
pt transported via bed to to pcu
--- NOTE | 2020-05-25 15:36 | NUR ---
05/25/20- Lorraine with Palliative care updated doctor and comic book writer that pt's health and situation has gotten worse. She continues to bleed, the treatment pt is on is not working as quickly as hoped and pt is still refusing blood products even with the insistance of her daughter to take blood. Went and met with pt and she talked about how she is able to talk with her daughter who is in [place] and can't get her to be with her. She shared that her daughter keeps trying to take the blood transfusion but pt has requested that there be no more discuss of blood. She states that she understands her situation and that she is near the end of her life. Pt has been having arrhythmias and gets very short of breath with converstation. When asked what could be done to help pt, she said that she would like to have a phone battery charger tester so she can continue to talk with her daughter. Pt has a SEA phone. Pt had POLST form, we sat and filled it out. She has requested DNR with minimal intervention. She is ok with a CPAP because she already has underlying DANIAL. During our meeting and filling the POLST form out, nurses came in and said that they needed to move the pt PCU for higher level of care due to health deteriorating. Pt was able to list her brother Ryne Rao as person to contact. She signed the form and she was transported. Contacted Dr. Gonsalez and let him know that pt filled out POLST and it needed to be signed. Left form with Lorraine in palliative care. Lorraine stated that she can get the pt a phone battery charger tester. -abdiel
--- NOTE | 2020-05-25 17:27 | NUR ---
SHIFT SUMMARY; ASSUMED CARE FROM SURGICAL FLOOR RN. A/A/OX4, WEAK AND PALE. DECLINES BLOOD TRANSFUSION DUE TO TAOIST BELIEFS. RECENT D & C WITH CONTINUED VAGINAL BLEEDING OVER THE LAST FEW DAYS. CONTINUES TO HAVE SMALL AMOUNT OF BLOOD IN ATTENDS DURING CHANGES. PT VERBALIZES UNDERSTANDING OF RISK OF NOT HAVING A TRANFUSION AND IS WORKING WITH PALLATIVE CARE CONSIDERING COMFORT CARE ONLY. 2L 02, REPOSITIONS SELF IN BED NEEDED, FEEDS SELF WITHOUT ASSISTANCE. HR BETWEEN 70-140 AFIB. PROVIDER AWARE OF HEART RATE, METOPROLOL HELD OVER THE LAST 2 DAYS DUE TO HYPOTENSION. WILL CONTINUE TO MONITOR AND TREAT UNTIL CHANGE OF SHIFT.
--- NOTE | 2020-05-25 17:47 | NUR ---
Multiple visits with patient today. Review of her condition with patient and answered her medical questions. Hospitalist in alsow to answer her questions. Pt estrella stellaeen tearfull most of the day and gieving her decline. She feels she has failed in life and has let everything go. We had a very blunt discussion about her prognosis and potential for suffering. pt feels strongly that that one of the few things she has left that gives her any peace or self esteem is coby adrianne. She is adamant that she not recieve blood. Pt physician reenforced that we will respect her and adjust the care accordingly. Pt has continued to decline with cardiac dysrythmias and having sharp pain in her back and pressure at times. Pt remains hypotenisve. She continues to loose blood she is pale with some mottling to her arms. Pt had me speak with her daughter on the phone and review what the physician said to her. Daughter is bargaining with her and pleading her to take the blood. Review with daughter that her chirosis can not be cured and that she is have multisystems failures. MUltiple supportive visits to patient today review with nursing pt prognois is grim tried to prepare daughter and pt for potential outcomes. Pt states she will try some cardiac care and if it is not helping will switch to comfort care.Advised staff to minimize serious conversations and enhace supportive care. Brought pt some snacks and encourged her to visit speak with family as much as she can. Pt very hisgh risk for sudden . PPS score is 30%
--- NOTE | 2020-05-25 22:47 | NUR ---
BLOOD AND FURTHER TREATMENT THIS RN AND PT SPOKE REGARDING CURRENT HGB, AFIB HR, THE HOLDING OF METOPROLOL RIGHT NOW, THE DIFFICULTIES OF MANAGING HOTN WITH HGB LOW HERS (3.5), WELL THOROUGHLY DISCUSSED PT'S CODE STATUS. PT CONTINUES TO BE FIRM ON DNR STATUS, NO BLOOD ADMISSIOIN DESPITE THIS RN EDUCATING PT EXTENSIVELY ON THE SUBJECT. DISCUSSED WHAT PT'S WISHES ARE FOR CARE AND SHE STATES THAT SHE IS CONTENT RIGHT NOW. SHE UNDERSTANDS THAT SHE IS RECEIVE PROCRIT BUT THAT THE MEDICATION IS NOT IMMEDIATE ACTING AND TAKES A PROLONGED AMOUNT OF TIME TO SHOW ANY REAL BENEFIT. TO NOTE: THIS DISUSSION WAS TO NOT PERSUADE PT TO SWITCH TO CC OR FULL CODE OR TO RECEIVE BLOOD. THIS RN WANTED TO MAKE SURE THAT PT HAD ALL THE ANSWERS SHE NEEDS TO MAKE THE APPROPRIATE DECISIONS FOR HER. THIS EDUCATION/DISCUSSION WAS DONE IN A WAY THAT FOSTERED INFORMATION GIVING WHILE RESPECTING PT WISHES. PT THANKED THIS RN FOR THE TIME SPENT TALKING TO HER AND STATES THAT SHE APPRECIATED THE DISCUSSION. NO CHANGES NOTED IN PT'S CONDITION CURRENTLY SINCE SHIFT CHANGE. PT STILL AXO. ON 2LNC. IN AFIB 80'S - 140'S. BP STABLE. SKIN WARM. STILL WITH CONSTANT SMALL RED DRAINAGE FROM VAGNA WELL HEMORRHOIDS. PT PLEASANT AND WANTING TO REST NOW.
--- NOTE | 2020-05-26 04:43 | NUR ---
SHIFT SUMMARY NO ACUTE CHANGES THIS SHIFT. PT AXO. REMAINS ON 2LNC. HR RANGING FROM 80-130/140. AFIB / AFLUTER SWITCHING BACK AND FORTH. PT ASYMPTOMATIC TO THIS. IV DISGOXIN ADMINISTERED THIS SHIFT, DECREASED HR TO 90'S FOR 1 HOUR AND THEN HR TRENDED BACK UP TO 120'S. BP STABLE THIS SHIFT. BLEEDING CONTINUES VAGINALLY BUT JUST SMALL AMOUNTS. CIWA NEGATIVE. SEE NOTE REGARDING PT DISCUSSION. OTHERWISE, PT RESTING IN ROOM OFF AND ON. NONIMPULSIVE AND PLEASANT. BEDREST THIS SHIFT. WILL CONTINUE TO MONITOR UNTIL SHIFT CHANGE.
--- NOTE | 2020-05-26 17:15 | NUR ---
SHIFT SUMMARY; NO ACUTE CHANGES DURING SHIFT. A/A/OX4. SKIN COLOR SLIGHTLY IMPROVED FROM YESTERDAY. UP TO RECLINER TODAY WITH ASSISTANCE AND TO BSC. APPEARS TO BE IN GOOD SPIRITS AND PLEASANT WITH CARE. DIGOXIN STARTED TODAY PO, TOLERATED WELL, HR REMAINED 120 FOR SHIFT IN SINUS. WILL CONTINUE TO MONITOR AND TREAT UNTIL CHANGE OF SHIFT.
--- NOTE | 2020-05-27 05:38 | NUR ---
SHIFT SUMMARY NO ACUTE CHANGES THIS SHIFT. VSS. REMAINS AXO. PT STARTED SHIFT IN ST 100'S BUT THEN CONVERTED TO AFIB. RATES MUCH BETTER CONTROLLED THIS SHIFT VS LAST NOC. HR RANGING 85-115. PT ON RA - 2L PER PT COMFORT, STILL EXERTIONASLLY DYSPNEIC. VAGINAL BLEEDING REMAINS, SMALL AMOUNTS. UP TO [facility] THIS SHIFT W/OUT INCIDENT. DENIED DIZZINESS. OTHERWISE, PT RESTING IN ROOM QUIETELY THIS SHIFT. SOMEWHAT WITHDRAWN BUT COOPERAQTIVE. WILL CONTINUE TO MONITOR UNTIL SHIFT CHANGE.
--- NOTE | 2020-05-27 16:15 | NUR ---
SHIFT SUMMARY: PT CONTINUES A&O T/OUT SHIFT, RESP EVEN AND UNLABORED, MAINTAINING O2 SATS >93% ON 2 L/MIN O2, SINUS RHYTHM ON MONITOR. PT TRANSFERS SELF TO AND FROM [facility] W/1 PERSON ASSIST. VAGINAL BLEEDING CONTINUES, PT REPORTS BLEEDING CONTINUES TO SLOW. MEPILEX DRESSINGS TO BLE REMOVED, WOUNDS CLEANED AND DRESSINGS REAPPLIED. WOUNDS APPEAR TO BE HEALING WELL. FLUID RESTRICTION OF 1500 ORDERED TODAY. REPORT HAS BEEN GIVEN TO MARY KAY CLEVELAND IN SURGICAL DEPT TO ASSUME CARE OF PT.
--- NOTE | 2020-05-27 18:01 | NUR ---
PATIENT IS ALERT AND OREINTED AND COOPERATIVE WITH CARE. PATIENT ARRIVED ON THIS UNIT AT 1630. 2L O2 VIA NC PER PATIENT'S REQUEST FOR COMFORT. PATIENT CALLS APPROPRIATELY. SHE HAS A GOOD APPETITE. WILL CONTINUE TO MONITOR.
--- NOTE | 2020-05-28 03:04 | NUR ---
SHIFT SUMMARY: SEVERE ANEMIA PATIENT IS ALERT AND ORIENTED X4 WHILE AWAKE. PATIENT HAS BEEN ASLEEP MAJORITY OF THE SHIFT. VS ARE WNL AND IS ON 2L OF OXYGEN. SHE DENIES HAVING ANY PAIN. SHE IS A SBA WITH FWW AND GAIT BELT TO THE BEDSIDE COMMODE. SHE HAS DYSPNEA ON EXERTION. SHE IS INCONTINENT AND HAS BEEN CHANGED PRN. SHE IS STILL BLEEDING A SMALL AMOUNT VAGINALLY WHEN URINATING. PATIENT CALLS APPROPRIATELY. SHE IS LAYING IN BED. CALL LIGHT WITHIN REACH. THE PLAN IS TO WORK WITH PT/OT AND TALK WITH PALLIATIVE CARE.
[2020-05-28 05:17] LABS: BASOPHILS ABSOLUTE AUTO 0.05 K/mm3 (0.00-0.23); BASOPHILS PERCENT AUTO 1 % (0-2); EOSINOPHILS ABSOLUTE AUTO 0.31 K/mm3 (0.00-0.68); EOSINOPHILS PERCENT AUTO 3 % (0-6); IMMATURE GRAN ABSOLUTE AUTO 0.56 K/mm3 (0.00-0.10); IMMATURE GRAN PERCENT AUTO 5 % (0-1); LYMPHOCYTES ABSOLUTE AUTO 1.15 K/mm3 (0.84-5.20); LYMPHOCYTES PERCENT AUTO 11 % (21-46); MONOCYTES ABSOLUTE AUTO 1.55 K/mm3 (0.16-1.47); MONOCYTES PERCENT AUTO 14 % (4-13); Mean Corpuscular HGB 33.3 pg (26.0-34.0); Mean Corpuscular HGB Conc 28.4 g/dL (31.5-36.5); NEUTROPHILS ABSOLUTE AUTO 7.34 K/mm3 (1.96-9.15); NEUTROPHILS PERCENT AUTO 67 % (41-73); NRBC ABSOLUTE 0.33 K/mm3 (0.00-0.02); Platelet Count 168 K/mm3 (150-400); RDW Coefficient Variation 25.1 % (11.7-14.2); RDW Standard Deviation 98.7 fL (35.1-46.3); Red Blood Cell Count 1.32 M/mm3 (3.80-5.20); White Blood Cell Count 10.96 K/mm3 (4.00-11.30)
[2020-05-28 05:41] LABS: Hematocrit 15.5 % (33.0-51.0); Mean Corpuscular Volume 117 fL (80-100)
[2020-05-28 05:42] LABS: Hemoglobin 4.4 g/dL (11.5-16.0)
[2020-05-28 05:53] LABS: Alanine Aminotransfer (ALT/SGP 52 U/L (12-78); Albumin, Blood 1.7 g/dL (3.4-5.0); Albumin/Globulin Ratio 0.5 (0.8-1.8); Alk Phos 111 U/L (50-136); Anion Gap 7 mmol/L (6-16); Aspartate Aminotrans (AST/SGOT 54 U/L (12-37); Bilirubin, Total 1.7 mg/dL (0.1-1.0); Blood Urea Nitrogen 12 mg/dL (8-24); Bun/Creatinine Ratio 12.4 (12.0-20.0); CO2, Blood 25 mmol/L (21-32); Calcium, Blood 7.9 mg/dL (8.5-10.1); Chloride, Blood 107 mmol/L (98-108); Creatinine, Blood 0.97 mg/dL (0.40-1.00); Ferritin, Serum 257 ng/mL (8-252); Globulin, Blood 3.7 g/dL (2.2-4.0); Glomerular Filtration Rate >60 (60-); Glucose, Blood 124 mg/dL (70-99); Iron Serum 50 ug/dL (50-170); Percent Saturation 21.4 % (15.0-50.0); Potassium, Blood 3.8 mmol/L (3.5-5.5); Sodium, Blood 139 mmol/L (136-145); Total Iron Binding Capacity 234 ug/dL (250-450); Total Protein, Blood 5.4 g/dL (6.4-8.2)
--- NOTE | 2020-05-28 14:02 | NUR ---
assumed care of pt, who is lying in bed with call light within reach, bed in lowest position
--- NOTE | 2020-05-28 16:47 | NUR ---
PASTORAL CARE IN WITH PT
--- NOTE | 2020-05-28 17:33 | NUR ---
from 1400, pt has remained a/0 x 4, pleasant/cooeprative, vss, no acute changes. pt is up in chair for meals, has ambulated to bathroom with fww. blood clot passed into attends. bm x 1, voiding.
--- NOTE | 2020-05-28 18:43 | NUR ---
Spiritual care note: Stefanie freely admits that she is an alcoholic. She went through ETOH rehab a few years ago, but then her mom dies and she started drinking again. She was an active member of the [employer] adrianne community, but was exiled for "something I said." She did not want to say what this was. However, she still hold to the tenants of this adrianne and very much to return to the adrianne. She denied any friends or relatives. Nearest family is in [facility]. Dtr in [place]. She appears very isolated. She plans on quitting ETOH now. Stefanie was talkative about her life, her family's turmoil, her heartbreak. She does not want her dtr coming to be with her. "She does not have a passport, and can't get one." Stefanie was unclear what happens next--where she will end-up. We had an easy rapport, and I recomended she reach out to her former adrianne community. Stefanei admits, "They are really kind and helpful" I will continue to follow as case-load permits. She ruben benefit from continued encouragement/auto travel counselor.
--- NOTE | 2020-05-28 19:57 | NUR ---
pt resting affect brighter today. pt abdomen larger today and more swelling. pt states she is still bleeding. Theraputic time with patient. Prognosis is poor will continue with chaplian to be her support system.
--- NOTE | 2020-05-29 04:30 | NUR ---
SHIFT SUMMARY NO ACUTE CHANGES THIS SHIFT, NO C/O ANY KIND, SLEPT T/O THE NIGHT & SLEEPING AT THIS TIME, CALL LIGHT IN REACH, WILL CONT TO MONITOR UNTIL REPORT GIVEN, WILL CONT TO MONITOR UNTIL REPORT GIVEN TO DAY RN.
--- NOTE | 2020-05-29 17:42 | NUR ---
Spiritual care note: Provided supportive visit to Stefanie to good effect. I will remain available.
--- NOTE | 2020-05-29 17:57 | NUR ---
SHIFT SUMMARY PT IN OVERALL CHEERFUL AND TALKATIVE MOOD TODAY. PT UP TO CHAIR FOR ALL MEALS AND WORKED WITH OT TODAY. PT TOLERATED AMBULATION TO BATHROOM AND SHOWERING. MINIMAL ASSISTANCE REQUIRED. PRN O2 WORN INTERMITTENLY T/O THE DAY. ANTIFUNGAL APPLIED TO FOLDS, UNDER BREASTS, AND ARMPITS. TRIAMCINOLONE CREAM APPLIED T/O BODY ON PSORIATIC SURFACES. PT DENIES PAIN T/O SHIFT. LEGS WRAPPED WITH LORENZO WRAP INSTEAD OF CORBIN HOSE FOR BETTER COMPRESSION PER DR. FOSTER ORDER. NO ACUTE CHANGES IN ASSESSMENT AT THIS TIME. VS REVIEWED & STABLE. CALL LIGHT IN REACH. PT CURRENTLY DENIES ANYMORE NEEDS AT THIS TIME.
--- NOTE | 2020-05-30 03:25 | NUR ---
SHIFT SUMMARY: SEVERE ANEMIA PATIENT IS ALERT AND ORIENTED X4 WHILE AWAKE. PATIENT HAS BEEN ASLEEP MAJORITY OF THE SHIFT BUT EASILY AROUSABLE. VS ARE STABLE AND OXYGEN SATS ARE >90% ON RA. PATIENT DENIES ANY PAIN OR SHORTNESS OR BREATH AT THIS TIME. HOWEVER, WITH MOVEMENT SHE DOES HAVE SOME SHORTNESS OR BREATH BUT PATIENT REPORTS "IT HAS BEEN IMPROVING". SHE ALSO HAS SOME EDEMA ON HER LEGS AND FEET. HER LEGS ARE ELEVATED ON PILLOWS. PATIENT CALLS APPROPRIATELY. SHE IS CURRENTLY LAYING IN BED WITH EYES CLOSED. CALL LIGHT WITHIN REACH. THE PLAN IS TO POSSIBLY DISCHARGE TODAY.
--- NOTE | 2020-05-30 15:14 | NUR ---
05/30/20- SCREEN FOR AIDE REQUESTED CLARIFICATION FOR D/C PLAN. THEY HAVE PUT HER REFERRAL ON HOLD. THEY ARE WONDERING IF PT HAS AN OPEN CASE WITH APS AND BOILING HOUSE [employer]. CALLED AND LMOM FOR [employer] TO CALL ME BACK. [facility] TO SEE IF THEIR AGENCY HAS ANY NOTES ON THIS SITUATION. ALAN STATED THAT ON 05/15/20, ANN, RN, WENT INTO THE HOME AND IT SMELLED OF GARBAGE AND PT WAS SOAKED IN URINE. RN TOLD PT THAT SHE WAS GOING TO CONTACT APS. IT'S REPORTED THAT THE PT THANKED THE NURSE FOR CARING FOR HER. -CRIS 05/30/20- SNF ASKED FOR CLARIFICATION FROM DR. FOSTER ON EPOETIN CRISTIAN MEDICATION. THEY ARE WONDERING IF PT WILL NEED THIS MEDICATION POST D/C SNF, HOW CAN IT BE ADMINISTERED, COULD IT BE TAKEN ORALLY, HOW WOULD IT BE ORDERED AND HOW WE WOULD GET IT TO THE PT WHILE AT SNF? DR. FOSTER STATED THAT MEDICATION IS GIVEN EITHER IV OR SUBQ, NO PILL FORM. PT WILL MOST LIKELY NEED THIS AT D/C DEPENDING ON BLOOD COUNTS. STATED THAT HE COULD TRY AND ORDER IT THROUGH [employer] BUT IT MOST LIKELY WILL REQUIRE A PRIOR AUTH. SNF SCREENER, GUILLERMO, HAS BEEN NOTIFIED. -CRIS 05/30/20- MET WITH PT. AND WENT OVER SNF REFERRAL FORM. PT IS AGREEABLE TO GOING TO [facility]. SHE STATES THAT HER D/C PLAN FROM SNF WOULD BE TO WORK WITH [facility] NURSE, WHO PRIOR TO PT BEING ADMITTED, CONTACTED APS DUE TO PT'S POOR LIVING SITUATION. NURSE WAS GOING TO GET PT A CAREGIVER AND HAVE SOMEONE CLEAN UP "HER MESS/HOME." PT STATES THAT SHE COULD BE MEALS THROUGH [facility] [employer] [facility]. PT WOULD BE RESUMING CARE THROUGH [facility]. SHE WOULD LIKE TO CONTINUE CARE WITH THIS AGENCY "SINCE THEY KNOW MY SITUATION VERY WELL." SPOKE WITH DR. FOSTER ABOUT PLAN FOR PT D/C. DR. FOSTER IS FOLLOWING DR. YOUSIF'S PLAN FOR TREATMENT, WHICH AT THIS TIME IS TO RECHECK LAB WORK ON THURSDAY. DR. FOSTER REQUESTED TO SEE IF SNF WOULD TAKE PT WHILE SHE IS ON EPOETIN CRISTIAN.
--- NOTE | 2020-05-30 17:50 | NUR ---
Shift Summary A/Ox4, calls for needs appropriately. Up to bathroom c 1P SBA c FWW. Up in chair for all meals. Ambulated in hallway with staff. Patient reports some dizziness and mild blurry vision with ambulation. Remains on 2L NC for comfort. Worked with PT/OT, tolerated both well. Compliant with fluid restriction of 1500 mL. Diet updated to reflect the fluid restriction. PG to ANGELIKA dressing changed today per unit protocol. LORENZO wraps to BLE to control swelling, these are intact. Swelling has greatly improved. Denies pain, nausea, vomiting, diarrhea. Topical meds applied to skin per orders. VSS, afebrile.
--- NOTE | 2020-05-31 05:05 | NUR ---
SHIFT SUMMARY: JIMMY IS A&OX4. VSS, NO ACUTE EVENTS OVERNIGHT. SHE IS ABLE TO MAKE HER NEEDS KNOWN. SHE IS TOLERATING PO INTAKE WELL, BLOOD SUGARS STABLE. SHE DENEIS THE NEED FOR PAIN MEDICATION. SHE STATES THAT SHE STILL GETS SOB ON EXERTION, BUT OVERALL FEELS THAT SHE IS IMPROVING. ATTENDS IN PLACE. SHE IS A ONE PERSON ASSIST TO THE BATHROOM. SHE IS LYING IN BED WITH HER CALL LIGHT IN REACH. WILL REPORT TO DAY SHIFT RN.
--- NOTE | 2020-05-31 11:27 | NUR ---
DR RECENTLY HERE TO SEE PT, DAUGHTER WAS ON PHONE WHILE DR IN ROOM.
--- NOTE | 2020-05-31 14:07 | NUR ---
PT REQUESTED STOOL SOFTENER EALIER TODAY. DISCUSSED WITH DR. ROBER GARCIA. PT SLEEPING AT THIS TIME.
--- NOTE | 2020-05-31 18:02 | NUR ---
SHIFT SUMMARY PT BEEN EATING AND DRINKING, VOIDING. PT HAD BM TODAY. PT CONT TO BE WEAK BUT WAS ABLE TO WORK WITH THERAPY TODAY. PT BEEN ASSISTED WITH ADL'S PRN. PT BEEN UP TO RECLINER CHAIR TODAY. LORENZO WRAPS BEEN IN PLACE. PT DID WELL WITH FLUID RESTRICTION. PT DENIED WANTING STOOL SOFTENER THIS AFTERNOON. PT USING [employer] APPR.
[2020-06-01 05:30] LABS: Hematocrit 20.2 % (33.0-51.0); IMMATURE RETIC FRACTION 38.3 % (2.3-16.0); RETIC HGB EQUIVALENT 29.6 pg (28.20-36.60); RETICULOCYTE ABSOLUTE 0.2962 M/mm3 (0.0200-0.1100); RETICULOCYTE COUNT PERCENT 17.32 % (0.50-2.50)
[2020-06-01 05:52] LABS: Hemoglobin 5.7 g/dL (11.5-16.0)
--- NOTE | 2020-06-01 05:53 | NUR ---
SHIFT SUMMARY: JIMMY IS A&OX4. VSS, NO ACUTE EVENTS OVERNIGHT. SHE DID PASS A FEW SMALL CLOTS THIS SHIFT, EACH APPROX DIME SIZED. SHE IS A ONE PERSON ASSIST TO THE BEDSIDE COMMODE. POWERGLIDE TO ANGELIKA PATENT, DOES NOT DRAW. ATTENDS IN PLACE, BOWEL CARE GIVEN THIS SHIFT, TOLERATING PO INTAKE WELL. SHE USES THE CALL LIGHT APPROPRIATELY. O2 @ 2 L VIA NC FOR COMFORT AND DYSPNEA ON EXERTION. PT C/O GAS PAIN, ORDER OBTAINED FROM ON-CALL PHYSICIAN FOR SIMETHICONE. SHE IS LYING IN BED WITH HER CALL LIGHT IN REACH. MEPILEX TO BLE WOUNDS, LORENZO WRAPS REMOVED FOR SLEEP. WILL REPORT TO DAY SHIFT RN.
[2020-06-01 05:56] LABS: Percent Saturation 9.7 % (15.0-50.0)
--- NOTE | 2020-06-01 09:53 | NUR ---
OT WORKING WITH PT.
--- NOTE | 2020-06-01 11:00 | NUR ---
LORENZO WRAPS TO BLE RECENTLY.
--- NOTE | 2020-06-01 14:06 | NUR ---
06/01/20- Shy has requested to know if APS was ever contacted on pt, does she have a telephonic nurse case manager, how is going to have her home cleaned and her get care givers. Contacted and spoke with RN at [facility], she confirmed that APS was called on the pt on 05/15/20. They reported her living environment and that pt can't care for herself in the home. RN stated that they do not help people find/get caregivers but when they make a report to [facility], APS will come to the home and assess things and then work with the pt on getting caregivers through [employer]. Attempted to go and talk with pt about calling [employer] and sign up for caregivers through the eligibility department. Pt was sound asleep with lights off and curtain drawn. Let contact information along with detailed note informing the pt that she qualifies for caregivers through [employer] and to call them at the number provided to set up services. Have called APS to find out it pt has an active case with them. Received call back and was provided [facility] number- [phone]. Called the number and was instructed to LM and they would return call..Spoke with Vic at [facility], he states that the note associated with call make on 05/15/20 has been closed out due to pt being willing to get care for herself. He reports that pt is able to get services set up, she will just need to call them. Vic reports that a home care worker can help the pt with her home and getting the extra care that she needs, pt just needs to call them, sign up for services and get approved. -abdiel
--- NOTE | 2020-06-01 15:45 | NUR ---
SHIFT SUMMARY PT EATING AND DRINKING, VOIDING. PT WORKED WITH THERAPY TODAY. PT UP WITH ASSIST. PT BEEN ASSISTED WITH ADL'S PRN. PT USING [employer] APPR.
--- NOTE | 2020-06-01 16:15 | NUR ---
OTHER RN S.S. GIVEN REPORT AND IS ASSUMING CARE OF PT.
--- NOTE | 2020-06-01 16:39 | NUR ---
ASSUMED CARE OF PATIENT. PT LYING IN BED NO NEEDS AT THIS TIME. CALL LIGHT IN REACH
--- NOTE | 2020-06-01 17:29 | NUR ---
SUMMARY PT SITTING UP IN CHAIR FOR DINNER. PT DENIES ANY PAIN OR LIGHTHEADEDNESS. CALL LIGHT IN REACH. TOLERATING PO FOOD AND FLUIDS
--- NOTE | 2020-06-01 17:31 | NUR ---
SUMMARY PT TAKING CLEAR LIQUIDS WITHOUT NAUSEA. PT REPORTS PAIN AT ACCEPTABLE LEVEL. PT IS MINIMAL ASSIST TO AMBULATE AND SATES SHE WAS NOT VERY ACTIVE PRIOR TO ADMIT.
--- NOTE | 2020-06-02 07:59 | NUR ---
SUMMARY PT FEELING BETTER. UP IN CHAIR THIS AM.
--- NOTE | 2020-06-02 08:01 | NUR ---
SUMMARY PT C/O SUDDEN INCREASED THROAT PAIN THIS AM. REPORTS WORSE ON LOWER R SIDE AND AROUND EAR LOBE AREA.DOES NOT FEEL LOZENGES WOULD BE HELPFUL.I REPORTED THIS TO DAY RN DEIRDRE WHO AGREES TO FOLLOW UP WITH DOCTOR ROUNDS.
--- NOTE | 2020-06-02 12:47 | NUR ---
BLE'S REWRAPPED W/ DOUBLE LAYER OF LORENZO WRAP ORDERED, PT STATES SHE REMOVED WRAP LAST NIGHT, EXPLAINED TO PT THAT WRAP NEEDS TO STAY IN PLACE AND NEEDS TO BE TIGHTENED EVERY 12 HOURS PRN ORDERED TO HELP WITH EDEMA.
--- NOTE | 2020-06-02 17:57 | NUR ---
PT HAS BEEN UP TO CHAIR FOR MEALS, AMBULATING TO THE BATHROOM INDEPENDENTLY WITH A WALKER AND STANDBY ASSIST, TOLERATING WELL, CONT. TO HAVE SOME SCANT PINK SPOTTING ON ATTENDS AND HAS SOME INCONTINENCE, DENIES ANY DIZZINESS, BLE'S W/ LORENZO WRAP, BLE'S ELEVATED WHEN IN BED, NO ACUTE CHANGES THIS SHIFT.
[2020-06-03 04:37] LABS: BASOPHILS ABSOLUTE AUTO 0.06 K/mm3 (0.00-0.23); BASOPHILS PERCENT AUTO 1 % (0-2); EOSINOPHILS PERCENT AUTO 3 % (0-6); Hematocrit 22.1 % (33.0-51.0); Hemoglobin 6.1 g/dL (11.5-16.0); IMMATURE GRAN ABSOLUTE AUTO 0.04 K/mm3 (0.00-0.10); IMMATURE GRAN PERCENT AUTO 1 % (0-1); LYMPHOCYTES ABSOLUTE AUTO 1.15 K/mm3 (0.84-5.20); LYMPHOCYTES PERCENT AUTO 16 % (21-46); MONOCYTES ABSOLUTE AUTO 0.75 K/mm3 (0.16-1.47); MONOCYTES PERCENT AUTO 10 % (4-13); Mean Corpuscular HGB 32.1 pg (26.0-34.0); Mean Corpuscular HGB Conc 27.6 g/dL (31.5-36.5); Mean Corpuscular Volume 116 fL (80-100); Mean Platelet Volume 11.1 fL (9.1-12.4); NEUTROPHILS ABSOLUTE AUTO 5.21 K/mm3 (1.96-9.15); NEUTROPHILS PERCENT AUTO 70 % (41-73); NRBC ABSOLUTE 0.03 K/mm3 (0.00-0.02); NRBC Auto 0.4 /100 WBC (0.0-0.2); Platelet Count 129 K/mm3 (150-400); RDW Coefficient Variation 21.3 % (11.7-14.2); RDW Standard Deviation 90.4 fL (35.1-46.3); White Blood Cell Count 7.41 K/mm3 (4.00-11.30)
[2020-06-03 04:58] LABS: Alanine Aminotransfer (ALT/SGP 38 U/L (12-78); Albumin, Blood 1.9 g/dL (3.4-5.0); Albumin/Globulin Ratio 0.4 (0.8-1.8); Alk Phos 97 U/L (50-136); Anion Gap 6 mmol/L (6-16); Aspartate Aminotrans (AST/SGOT 43 U/L (12-37); Bilirubin, Total 1.7 mg/dL (0.1-1.0); Blood Urea Nitrogen 17 mg/dL (8-24); Bun/Creatinine Ratio 17.8 (12.0-20.0); CO2, Blood 29 mmol/L (21-32); Calcium, Blood 8.3 mg/dL (8.5-10.1); Chloride, Blood 106 mmol/L (98-108); Creatinine, Blood 0.95 mg/dL (0.40-1.00); Globulin, Blood 4.3 g/dL (2.2-4.0); Glomerular Filtration Rate >60 (60-); Glucose, Blood 124 mg/dL (70-99); Potassium, Blood 3.6 mmol/L (3.5-5.5); Sodium, Blood 141 mmol/L (136-145); Total Protein, Blood 6.2 g/dL (6.4-8.2)
--- NOTE | 2020-06-03 06:33 | NUR ---
SUMMARY PT WITH NO ACUTE CHANGES TONIGHT. LABS CONTINUE SLIGHT IMPROVEMENT.
--- NOTE | 2020-06-03 09:30 | NUR ---
A&OX3, DENIES ANY PAIN OR ANY DISCOMFORT, LLE APPEARS LESS SWOLLEN THAN RLE, BLE LORENZO WRAPS DRY AND INTACT, AMBULATING TO THE BATHROOM WITH WALKER AND STANDBY ASSIST, REPORTS TOLERATING DIET WELL.
--- NOTE | 2020-06-03 18:15 | NUR ---
UP TO CHAIR FOR MEALS, AMBULATES TO THE BATHROOM WITH A WALKER AND STANDY ASSIST, TOLERATED WELL, DENIES ANY DIZZINESS, BLE'S W/ LORENZO WRAP APPEAR LESS SWOLLEN, CONT. TO HAVE MODERATE ABD DISTENTION, DENIES ANY PAIN, NO ACUTE CHANGES THIS SHIFT.
--- NOTE | 2020-06-04 16:48 | NUR ---
06/04/20- Per chart review with Dr. Gonsalez, pt is stable to d/c. PT and OT notes are recommending SNF. Met with pt in the afternoon and we called [employer] to set up an appt for her to sign up for long-term care givers and correctional counselor/case manager to help her get back into her home post SNF. Contacted multiple facilities for placement. The following had no beds: [facility],-[phone] [facility]- [phone] [facility]- [phone] [place]- [phone] [facility]- [phone] Sent packets for review to: [facility] in [place]- [phone] (They declined pt due to not being contracted with her insurance, pt. is still actively bleeding and RX is too expensive.) [facility], (no beds today but maybe later this week.) - [phone]. Luisa with called and wanted to know if the pt had to be on the Epoetin Aaron, because this medication is too expensive. Let her know that per Dr. Langston' last week, pt needs SNF rehab more than medication, so this medication can be d/c at discharge. Luisa requested that prior Auth be sent to pt's insurance for approval. Discussed with Luisa that this would be requested. Luisa wanted to know what the plan was for the pt with [employer]. Informed her of the upcoming appt for pt to est. long-term services with them. Pending ins. Approval, is willing to take the pt. They requested that pt have an updated COVID test. Will have this ordered prior to d/c. Davina with [employer] will get the insurance auth for tomorrow (Thursday). Once this is received will set up transportation for pt. Pt did state during our afternoon meeting, that she will need some clothing cause all that she has is what she came into the hospital in. Will reach out to several places in the hospital and see if we can get her some clothing for when she leaves. Pt states that she wears 3X-4X. -kjw
--- NOTE | 2020-06-04 17:25 | NUR ---
SHIFT SUMMARY PT HAS DONE WELL TODAY. UP TO CHAIR FOR ALL MEALS. EATING, DRINKING, VOIDING, & HAD BM. WORKED WELL W/ PT/OT. PAIN WELL CONTROLLED.
--- NOTE | 2020-06-05 03:34 | NUR ---
SHIFT SUMMARY: VAGINAL BLEEDING PATIENT IS ALERT AND ORIENTED X4 WHILE AWAKE. SHE HAS BEEN ASLEEP MAJORITY OF THE SHIFT BUT IS EASILY AROUSABLE. VS ARE WNL AND IS ON RA. PATIENT DENIES PAIN. SHE REPORTS FEELING LESS DYSPNEA ON EXERTION AFTER WORKING WITH PALLIATIVE CARE. THERE IS SCANT AMOUNT OF BLOOD IN HER DEPENDS. SHE DOES HAVE EDEMA IN HER BLE. SHE HAS LORENZO WRAP AROUND BOTH LEGS TO DECREASE SWELLING. SHE ALSO HAS A PREVENTATIVE MEPILEX ON HER COCCYX. SHE TAKES HER PILLS WITH APPLESAUCE. SHE IS A SBA WITH WALKER TO THE BATHROOM. PATIENT CALLS APPROPRIATELY. CALL LIGHT WITHIN REACH. POWERGLIDE IS WNL AND EASILY FLUSHED 10 NS. THE PLAN IS TO BE DISCHARGED TO A SNF WHEN POSSIBLE.
[2020-06-05 14:07] LABS: Influenza A, PCR NEGATIVE (NEGATIVE); Influenza B, PCR NEGATIVE (NEGATIVE); Resp Syncytial Virus, PCR NEGATIVE (NEGATIVE); SARS-Cov-2 (COVID-19) PCR, MMC NEGATIVE (NEGATIVE)
--- NOTE | 2020-06-05 17:00 | NUR ---
ADMIT: 05/21/20 DISCHARGE: 06/06/20 DX: Severe Anemia CC: [email or web address] 06/05/20 Luisa from [facility] cell phone [phone] accepted patient today if could get transported by 14:00. Could not get transport until 4 pm by [facility] today or tomorrow. Scheduled transport with [facility] for 11:00 am on Thursday. Liza agreed to pay for 1/2 of transport fee ( [facility]) Notified Vira, floor nurse, of discharge time and transport [facility] for 06/07/19 Faxed Covid test and Atrio authorization to Shilpa at [facility] [phone] Gonsalez that transport is planned for 11am. cp
--- NOTE | 2020-06-06 03:33 | NUR ---
SHIFT SUMMARY: VAGINAL BLEEDING PATIENT IS ALERT AND ORIENTED X3 WHILE AWAKE. HE HAS BEEN ASLEEP MAJORITY OF THE SHIFT. VS ARE WNL AND IS ON RA. SHE DOES HAVE SOME DYSPNEA ON EXERTION BUT HAS BEEN IMPROVING REPORTED FROM PATIENT. SHE IS A SBA WITH FWW AND GAIT BELT. SHE IS VOIDING AND TOLERATING PO INTAKE. CALLS APPROPRIATELY. SHE HAD A LIVER ULTRA SOUND AT BEGINNING OF SHIFT. SHE TAKES HER PILLS WITH APPLESAUCE. PATIENT HAS SOME EDEMA BLE. LEGS ARE ELEVATED ON PILLOWS. POWERGLIDE IS FLUSHING WELL AND IS WNL. CALL LIGHT WITHIN REACH. THE PLAN IS FOR POSSIBLE DISCHARGE TO SNF LATER TODAY.
--- NOTE | 2020-06-06 10:45 | NUR ---
ATTEMPTED TO CALL REPORT. PER STAFF THEY WILL RETURN CALL.
--- NOTE | 2020-06-06 11:00 | NUR ---
DISCHARGE VIA W/C. PACKET SENT W/ TRANSPORTATION. PT ALERT ORIENTED, PLEASANT. SCANT VAG BLEEDING, UNCHANGED. SBA. EATING , DRINKING, VOIDING, & HAVING REG BM's.
--- NOTE | 2020-06-06 18:14 | NUR ---
review of pt with volunteer. Sent as support person visit before discharge.
--- NOTE | 2020-06-06 23:18 | NUR ---
ADMIT: 05/21/20 DISCHARGE: 06/06/20 DX: Severe Anemia CC: cpeabodyToc- call [facility]- SNF for chen [phone]- may need facility medical care. [place].06/06/20 Transported to [facility] today by Wheelchair transport. Med rec and orders faxed prior ot packet sent with Transport. DNR Polst included in packet. Met with Stefanie prior to discharge.Noted that [employer] appointment was on June 15, screener of the day will contact her. Reminded her that she may be able to contact [facility] for statements to be faxed to [employer] screener. Remind screener she is in snf, need to have services JEFF when arrives home. She may be followed by facility medical physician or by E[facility]. Told her our chen would call the facility and get that worked out.It was recommended that she follow up with Dr Mims for medications. I don't believe that will be able to happen until she discharges back to [place]. cp
== END 2020-06-06 11:10 | DRG 744 ==
LOC: ER 16:32 → SURS 19:18 → MEDS 19:18 → SURS 05-22 09:19 → PCU 05-25 14:05 → SURS 05-27 16:35
PROVIDERS: Emergency Medicine; Family Medicine; Internal Medicine; Obstetrics & Gynecology; ADMIT Internal Medicine
PROC: 0UDB8ZZ Extraction of Endometrium, Via Natural or Artificial Opening Endoscopic (ICD-10-PCS; principal; 2020-05-24)
PROC: 0UH97HZ Insertion of Contraceptive Device into Uterus, Via Natural or Artificial Opening (ICD-10-PCS; 2020-05-24)
DX: N93.9 Abnormal uterine and vaginal bleeding, unspecified (principal); I50.31 Acute diastolic (congestive) heart failure; F10.239 Alcohol dependence with withdrawal, unspecified; D62 Acute posthemorrhagic anemia; D68.4 Acquired coagulation factor deficiency; I24.8 Other forms of acute ischemic heart disease; I13.0 Hypertensive heart and chronic kidney disease with heart failure and stage 1 through stage 4 chronic kidney disease, or unspecified chronic kidney disease; Z20.822 Contact with and (suspected) exposure to COVID-19; N18.30 Chronic kidney disease, stage 3 unspecified; I95.9 Hypotension, unspecified; Z66 Do not resuscitate; I48.0 Paroxysmal atrial fibrillation; D50.9 Iron deficiency anemia, unspecified; K70.10 Alcoholic hepatitis without ascites; Z68.38 Body mass index [BMI] 38.0-38.9, adult; E87.6 Hypokalemia; K70.31 Alcoholic cirrhosis of liver with ascites; E11.22 Type 2 diabetes mellitus with diabetic chronic kidney disease; F41.8 Other specified anxiety disorders; E66.01 Morbid (severe) obesity due to excess calories; G47.33 Obstructive sleep apnea (adult) (pediatric); E03.9 Hypothyroidism, unspecified; E78.5 Hyperlipidemia, unspecified; K21.9 Gastro-esophageal reflux disease without esophagitis; Z87.891 Personal history of nicotine dependence; Z98.890 Other specified postprocedural states; Z79.899 Other long term (current) drug therapy; Z79.84 Long term (current) use of oral hypoglycemic drugs
CPT/HCPCS: 0241U; 36415; 51701; 76705; 80053; 81001; 82728; 82947; 83540; 83550; 83690; 83735; 83880; 84484; 85007; 85014; 85018; 85025; 85027; 85045; 85610; 85730; 86850; 86900; 86901; 88305; 93005; 93010; 93308; 93321; 94640; 94760; 94762; 96360-59; 96361-59; 97110; 97116; 97162; 97166; 97530; 97535; 99285-25; A9270; C1751; J1100; J1160; J1815; J1940; J2250; J2370; J2405; J2704; J2916; J3010; J3420; J3430; J7030; J7120; J7298; Q5106

== ENCOUNTER → 2020-05-21 | Outpatient (CLI) | payer OTHER ==
[~2020-05-21] MED LIST changes: +ACAMPROSATE CA333 MG PO; +ALDACTONE25 MG PO; +ANORO ELLIPTA1 EACH INH; +ASPI81CH PO; +ATENOLOL25 MG PO; +ATOR20 PO; +B-1100 M1 PO; +BUSP5 PO; +Cetirizine HCl10 MG PO; +DISU250 PO; +FERROUS SULFAT325 M3 PO; +FOLI1 PO; +FURO80 PO; +FUROSEMIDE40 MG PO; +GLIP5 PO; +LANOXIN PO; +MAGCHL64ER PO; +METO25ER PO; +MIDO5 PO; +MIRALAX17 GM PO; +MULVITA PO; +PRED5 PO; +PROAIR DIGIHAL90 MCG IH; +PROMETRIUM PO; +SPIRIVA RESPIMAT4 G3 INH; +THERA-D2000 UNIT PO; +TIOT18 INH; +Triamcinolone A15 G4 TOP; +XARELTO20 M1 PO; +XARELTO20 MG PO
[2020-05-21 20:20] LABS: Creatinine Urine 30.6 mg/dL (27.00-270.00); Protein, Urine Quantitative 40.4 mg/dL (0.0-11.9)
== END | disposition home or self-care (01) ==
LOC: LAB 16:39 → LAB SHORT 16:39 → LAB FUT 05-02 10:00
PROVIDERS: Internal Medicine Nephrology
DX: N18.30 Chronic kidney disease, stage 3 unspecified (principal); D63.1 Anemia in chronic kidney disease; N25.81 Secondary hyperparathyroidism of renal origin; E55.9 Vitamin D deficiency, unspecified; E78.00 Pure hypercholesterolemia, unspecified; D51.8 Other vitamin B12 deficiency anemias; D52.8 Other folate deficiency anemias; D50.9 Iron deficiency anemia, unspecified; R76.9 Abnormal immunological finding in serum, unspecified; R94.5 Abnormal results of liver function studies; R94.6 Abnormal results of thyroid function studies
CPT/HCPCS: 81050; 82043; 82570; 84156

== ENCOUNTER 2020-08-13 09:11 | Inpatient (IN) | payer OTHER ==
[~2020-08-13] VITALS: Ht 170.2 cm; Wt 107.0 kg
[~2020-08-13 09:11] MED LIST changes: +FURO80 PO; +PROAIR DIGIHAL90 MCG IH; +TIOT18 INH; +XARELTO20 M1 PO
[2020-08-13 09:39] LABS: BASOPHILS PERCENT AUTO 1 % (0-2); EOSINOPHILS ABSOLUTE AUTO 0.05 K/mm3 (0.00-0.68); EOSINOPHILS PERCENT AUTO 1 % (0-6); Hematocrit 29.4 % (33.0-51.0); Hemoglobin 9.1 g/dL (11.5-16.0); IMMATURE GRAN ABSOLUTE AUTO 0.03 K/mm3 (0.00-0.10); IMMATURE GRAN PERCENT AUTO 0 % (0-1); LYMPHOCYTES ABSOLUTE AUTO 0.62 K/mm3 (0.84-5.20); LYMPHOCYTES PERCENT AUTO 7 % (21-46); MONOCYTES ABSOLUTE AUTO 1.06 K/mm3 (0.16-1.47); MONOCYTES PERCENT AUTO 13 % (4-13); Mean Corpuscular HGB 29.2 pg (26.0-34.0); Mean Corpuscular Volume 94 fL (80-100); NEUTROPHILS ABSOLUTE AUTO 6.51 K/mm3 (1.96-9.15); NEUTROPHILS PERCENT AUTO 78 % (41-73); Platelet Count 97 K/mm3 (150-400); RDW Standard Deviation 66.8 fL (35.1-46.3); Red Blood Cell Count 3.12 M/mm3 (3.80-5.20); White Blood Cell Count 8.37 K/mm3 (4.00-11.30)
[2020-08-13 09:55] LABS: Alanine Aminotransfer (ALT/SGP 35 U/L (12-78); Albumin, Blood 2.5 g/dL (3.4-5.0); Albumin/Globulin Ratio 0.6 (0.8-1.8); Alk Phos 119 U/L (50-136); Anion Gap 11 mmol/L (6-16); Aspartate Aminotrans (AST/SGOT 58 U/L (12-37); Bilirubin, Total 5.7 mg/dL (0.1-1.0); Blood Urea Nitrogen 12 mg/dL (8-24); Bun/Creatinine Ratio 13.1 (12.0-20.0); CO2, Blood 29 mmol/L (21-32); Calcium, Blood 7.8 mg/dL (8.5-10.1); Chloride, Blood 99 mmol/L (98-108); Creatinine, Blood 0.91 mg/dL (0.40-1.00); Globulin, Blood 4.5 g/dL (2.2-4.0); Glomerular Filtration Rate >60 (60-); Glucose, Blood 180 mg/dL (70-99); Potassium, Blood 2.7 mmol/L (3.5-5.5); Sodium, Blood 139 mmol/L (136-145)
[2020-08-13 11:30] LABS: International Normalized Ratio 1.36; Prothrombin Time Results 14.4 Sec (9.7-11.5)
--- NOTE | 2020-08-13 16:49 | NUR ---
PT ADMIT TO PCU AT 1503. ABLE TO STAND AND TRANSFER FROM [facility]. ON ROOM AIR SATING ABOVE 94%. TELE SHOWING SINUS WITH PVC'S IN THE 80'S. DENIES CHEST PAIN/PRESSURE. VITAL SIGNS STABLE. DENIES OVERALL PAIN. PSORASIS SCATTERED THROUGHOUT. REDNESS NOTED BILATERAL UNDER BREASTS. REDNESS TO BLE, MARKED WITH SKIN MARKER. SCAB TO RLE, PT STATES HAS BEEN THERE FOR AWHILE. PICTURES TO BE TAKEN. UPON MED REC, PATIENT UNABLE TO PROVIDE NEW MEDICATIONS, WILL GET MED LIST FROM [facility]. PT DOES STATE SINCE STARTING A ANTIBIOTIC ON THURSDAY THE SHE HAS NOT BEEN TAKING HER OTHER MEDICATIONS. PT STATES SHE HAS BEEN HAVING DIARRHEA, C. DIFF PRECAUTIONS IN PLACE AND STOOL SAMPLE TO BE COLLECTED. IV IN LEFT AC, FLUSHING WELL. ANTIBIOIC INFUSED AND POTASSIUM INFUSING WITH KVO NS TO REDUCE BURNING. ORIENTED TO ROOM AND UNIT. CALL LIGHT IN REACH. WILL CONTINUE TO MONITOR.
--- NOTE | 2020-08-13 17:48 | NUR ---
SHIFT SUMMARY: NO ACUTE CHANGES PT REMAINS ALERT AND ORIENTED X4. VITALS REMAIN STABLE. POTASSIUM INFUSING. PT UP IN CHAIR FOR MEAL. DENIES PAIN AND SOB. MEDS WITH APPLESAUCE PER PATIENT PREFERENCE. SEE PREVIOUS NOTE FOR UPDATES. CALL LIGHT IN REACH. WILL CONTINUE TO MONITOR AND REPORT OFF.
[2020-08-14 05:01] LABS: BASOPHILS ABSOLUTE AUTO 0.08 K/mm3 (0.00-0.23); BASOPHILS PERCENT AUTO 1 % (0-2); EOSINOPHILS ABSOLUTE AUTO 0.38 K/mm3 (0.00-0.68); EOSINOPHILS PERCENT AUTO 5 % (0-6); Hematocrit 27.8 % (33.0-51.0); Hemoglobin 8.6 g/dL (11.5-16.0); IMMATURE GRAN ABSOLUTE AUTO 0.03 K/mm3 (0.00-0.10); IMMATURE GRAN PERCENT AUTO 0 % (0-1); LYMPHOCYTES PERCENT AUTO 15 % (21-46); MONOCYTES ABSOLUTE AUTO 1.01 K/mm3 (0.16-1.47); MONOCYTES PERCENT AUTO 14 % (4-13); Mean Corpuscular HGB 29.2 pg (26.0-34.0); Mean Corpuscular HGB Conc 30.9 g/dL (31.5-36.5); Mean Corpuscular Volume 94 fL (80-100); Mean Platelet Volume 10.3 fL (9.1-12.4); NEUTROPHILS ABSOLUTE AUTO 4.54 K/mm3 (1.96-9.15); NEUTROPHILS PERCENT AUTO 64 % (41-73); Platelet Count 84 K/mm3 (150-400); RDW Coefficient Variation 19.9 % (11.7-14.2); RDW Standard Deviation 68.3 fL (35.1-46.3); Red Blood Cell Count 2.95 M/mm3 (3.80-5.20); White Blood Cell Count 7.14 K/mm3 (4.00-11.30)
[2020-08-14 05:27] LABS: Albumin, Blood 2.4 g/dL (3.4-5.0); Albumin/Globulin Ratio 0.6 (0.8-1.8); Bilirubin, Total 4.5 mg/dL (0.1-1.0); Bun/Creatinine Ratio 11.7 (12.0-20.0); Calcium, Blood 7.6 mg/dL (8.5-10.1); Creatinine, Blood 1.03 mg/dL (0.40-1.00); Magnesium, Blood 1.7 mg/dL (1.6-2.4); Potassium, Blood 3.1 mmol/L (3.5-5.5); Total Protein, Blood 6.4 g/dL (6.4-8.2)
--- NOTE | 2020-08-14 05:58 | NUR ---
SHIFT SUMMARY PT A&O X4. VSS. MONITOR SHOWS SR W/ PVC's, HR 70's. PT SOB W/ STAND/PIVOT TRANSFERS FROM BED TO BSC, BUT MAINTAINING SPO2 > 92% ON RA. PT W/ BLOODY URINE W/ PT REPORT OF "VAGINAL" BLEED & "I NEED TO GET A HYSTERECTOMY." PT W/ NO BM THIS SHIFT. STOOL SAMPLE REMAINS UNCOLLECTED. NO EVENTS OVER NIGHT.
--- NOTE | 2020-08-14 19:59 | NUR ---
PT HAD FORMED BM; ALL CBG WDL AND DID NOT REQUIRE INSULIN CORRECTION PER MAR; PT HAD MRI OF HEAD FROM 0 TO 1531 VIA WHEELCHAIR WITH TELEMETRY MONITORING, NO FLUIDS, AND NO OXYGEN, ACCOMPANIED BY RACK CARRIER; PT VOIDED IN BSC SEVERAL TIMES ASSIST X1; DIURETIC RX ADMINISTERED PER MAR; PT DENIES ADDITIONAL CONCERNS AT THIS TIME
[2020-08-15 05:48] LABS: BASOPHILS ABSOLUTE AUTO 0.07 K/mm3 (0.00-0.23); BASOPHILS PERCENT AUTO 1 % (0-2); EOSINOPHILS ABSOLUTE AUTO 0.25 K/mm3 (0.00-0.68); EOSINOPHILS PERCENT AUTO 4 % (0-6); Hematocrit 27.8 % (33.0-51.0); Hemoglobin 8.6 g/dL (11.5-16.0); IMMATURE GRAN ABSOLUTE AUTO 0.03 K/mm3 (0.00-0.10); IMMATURE GRAN PERCENT AUTO 1 % (0-1); LYMPHOCYTES ABSOLUTE AUTO 0.91 K/mm3 (0.84-5.20); LYMPHOCYTES PERCENT AUTO 14 % (21-46); MONOCYTES PERCENT AUTO 16 % (4-13); Mean Corpuscular HGB 29.5 pg (26.0-34.0); Mean Corpuscular HGB Conc 30.9 g/dL (31.5-36.5); Mean Corpuscular Volume 95 fL (80-100); Mean Platelet Volume 10.2 fL (9.1-12.4); NEUTROPHILS ABSOLUTE AUTO 4.07 K/mm3 (1.96-9.15); NEUTROPHILS PERCENT AUTO 64 % (41-73); Platelet Count 83 K/mm3 (150-400); RDW Coefficient Variation 20.3 % (11.7-14.2); Red Blood Cell Count 2.92 M/mm3 (3.80-5.20); White Blood Cell Count 6.33 K/mm3 (4.00-11.30)
[2020-08-15 06:02] LABS: Bun/Creatinine Ratio 10.6 (12.0-20.0); Calcium, Blood 7.8 mg/dL (8.5-10.1); Creatinine, Blood 1.13 mg/dL (0.40-1.00); Potassium, Blood 2.8 mmol/L (3.5-5.5)
--- NOTE | 2020-08-15 07:19 | NUR ---
SHIFT SUMMARY PT DYSPNEIC WITH EXERTION WHEN AMBULATING TO AND FROM COMMODE. BREATHING OTHERWISE EVEN AND UNLABORED WHILE PT LAYING IN BED. SATS MAINTAINED 94-95% RA. HAS DIFFICULTY WHEN USING COMMODE DUE TO URGENCY. SOME BLOOD SEEN IN URINE T/O NIGHT, PT REPORTS VAGINAL BLEEDING. PT VSS. DENIES CP. STATES RELIEF OF PSORIASIS RASH FOLLOWING APPLICATION OF TRIAMINCINOLONE PER ORDERS. THIS RN CALLS AND NOTIFIES DR NICOLE OF PT POTASSIUM OF 2.8. ORDER FOR POTASSIUM 40 MEQ IV TOTAL PLACED.
--- NOTE | 2020-08-15 15:42 | NUR ---
ADMIT: 08/13/20 DISCHARGE: DX: CHF CC: Malachi YOUSIF CALL: RESIDENCE: Home [address] [place] [address] [place]. [address] CAREGIVER: None on file DX: DANIAL, HTN, anemia, chrrhosis of liver, alcoholism, HTN, see list DME: adult pull ups, DM supplies, compression hose, extension grabber, raised toilet seat, grab bars, walker with rollator, shower chair CCM: Referral in 2018 HOME HEALTH: [facility] SUMMARY: 08/15/20- per chart review with Dr. Llanos, pt is being diuresed and will probably stay until Thursday. Pt admitted for exacerbation of CHF. -kenjiw
[2020-08-15] MEDS ORDERED: MIDO5 PO (17:56)
[2020-08-15] MEDS ORDERED: FERROUS SULFAT325 M3 PO (17:57)
[2020-08-15] MEDS ORDERED: ACAMPROSATE CA333 MG PO (17:58)
[2020-08-15] MEDS ORDERED: ATENOLOL25 MG PO (17:59)
[2020-08-15] MEDS ORDERED: PRED5 PO (18:01)
[2020-08-15] MEDS ORDERED: LANOXIN PO (18:02)
--- NOTE | 2020-08-15 20:15 | NUR ---
PT REPORTED 5 EPISODES OF ORAL NUMBNESS/CHEEK WEAKNESS AND LOSS OF MOTOR CONTROL FOR SEVERAL SECONDS AT A TIME OF HER TONGUE; EPISODES REPORTED TO DR. WYNNE AT 1623 VIA PHONE; ORDERS PROVIDED AFTER DR. WYNNE EVALUATED PT AT BEDSIDE; PT REPORTS FEELING SCARED ABOUT EPISODES INCREASING IN INTENSITY OR FREQUENCY; RX ADMINISTERED PER MAR TO TREAT EPISODES PT'S TELEMETRY EXHIBITED FREQUENT ARTIFACT FOR 6+HR IN SPITE OF CHANGING TELEMETRY ELECTRODES 8X, LEADS, AND BOX; ORDER OBTAINED TO DISCONTINUE TELEMETRY MONITORING; PT EXHIBITED URGE INCONTINENCE SEVERAL TIMES DURING TRANSFER TO [facility] AND REPORTS THAT IT IS THE RESULT OF DIURETIC USE; VSS; BERNSTEIN; PT REPORTED NEURALGIA IN BLE IN SPITE OF DECREASED SWELLING; PT DENIES ADDITIONAL CONCERNS AT THIS TIME
[2020-08-15 21:33] LABS: Magnesium, Blood 1.5 mg/dL (1.6-2.4); Phosphorus, Blood 3.4 mg/dL (2.5-4.9); Potassium, Blood 3.3 mmol/L (3.5-5.5)
[2020-08-16 06:32] LABS: Bun/Creatinine Ratio 11.7 (12.0-20.0); Calcium, Blood 7.5 mg/dL (8.5-10.1); Creatinine, Blood 1.2 mg/dL (0.40-1.00); Potassium, Blood 4.1 mmol/L (3.5-5.5)
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
[2020-08-16 07:00] LABS: BASOPHILS ABSOLUTE AUTO 0.06 K/mm3 (0.00-0.23); BASOPHILS PERCENT AUTO 1 % (0-2); EOSINOPHILS ABSOLUTE AUTO 0.23 K/mm3 (0.00-0.68); EOSINOPHILS PERCENT AUTO 4 % (0-6); Hematocrit 29.1 % (33.0-51.0); Hemoglobin 9.1 g/dL (11.5-16.0); IMMATURE GRAN ABSOLUTE AUTO 0.02 K/mm3 (0.00-0.10); IMMATURE GRAN PERCENT AUTO 0 % (0-1); LYMPHOCYTES ABSOLUTE AUTO 0.85 K/mm3 (0.84-5.20); LYMPHOCYTES PERCENT AUTO 14 % (21-46); MONOCYTES ABSOLUTE AUTO 0.88 K/mm3 (0.16-1.47); MONOCYTES PERCENT AUTO 15 % (4-13); Mean Corpuscular HGB 29.7 pg (26.0-34.0); Mean Corpuscular HGB Conc 31.3 g/dL (31.5-36.5); Mean Corpuscular Volume 95 fL (80-100); Mean Platelet Volume 10.5 fL (9.1-12.4); NEUTROPHILS PERCENT AUTO 66 % (41-73); Platelet Count 96 K/mm3 (150-400); RDW Coefficient Variation 21.2 % (11.7-14.2); RDW Standard Deviation 70.4 fL (35.1-46.3); Red Blood Cell Count 3.06 M/mm3 (3.80-5.20); White Blood Cell Count 6.04 K/mm3 (4.00-11.30)
--- NOTE | 2020-08-16 07:52 | NUR ---
UPDATE SPOKE WITH PHYSICIAN REGARDING PT'S FAILED BEDSIDE SWALLOW EVAL DURING NOC 08/15. D/T PT HAVING HX OF SWALLOW EVALS PT ABLE TO RESUME ADA DIET PER PHYSICIAN.
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
--- NOTE | 2020-08-16 18:01 | NUR ---
SHIFT SUMMARY PT ALERT AND ORIENTED X 4. NO NEURO CHANGES T/O SHIFT. PEDIATRICS PHYSICIAN STRENGTH EQUAL. PUPILS EQUAL. HR STABLE. BP STABLE. NO CP OR PRESSURE. OXYGEN SATURATION MAINTAINED ABOVE 92% ON RA. PT SBA TO COMMODE AND CHAIR NEEDED. ORDERS FOR SPEECH EVAL DC'D PER PHYSICIAN D/T PT'S HX OF DYSPHAGIA. PHYSICIAN ORDERS FOR PT TO HAVE DIET ORDERS RESUMED. PT NO LONGER NPO. WILL CONTINUE TO MONITOR UNTIL REPORT GIVEN TO NIGHTSHIFT RN.
--- NOTE | 2020-08-16 19:28 | NUR ---
UPDATE UNABLE TO GIVE 1800 DOSE OF IV LASIX D/T LOSS OF IV ACCESS. NOC RN TO ATTEMPT TO OBTAIN IV ACCESS FOR IV MEDICATIONS.
[2020-08-17 05:04] LABS: BASOPHILS ABSOLUTE AUTO 0.07 K/mm3 (0.00-0.23); BASOPHILS PERCENT AUTO 1 % (0-2); EOSINOPHILS ABSOLUTE AUTO 0.23 K/mm3 (0.00-0.68); EOSINOPHILS PERCENT AUTO 4 % (0-6); Hematocrit 27.4 % (33.0-51.0); Hemoglobin 8.5 g/dL (11.5-16.0); IMMATURE GRAN ABSOLUTE AUTO 0.01 K/mm3 (0.00-0.10); IMMATURE GRAN PERCENT AUTO 0 % (0-1); LYMPHOCYTES ABSOLUTE AUTO 0.82 K/mm3 (0.84-5.20); LYMPHOCYTES PERCENT AUTO 14 % (21-46); MONOCYTES ABSOLUTE AUTO 0.91 K/mm3 (0.16-1.47); MONOCYTES PERCENT AUTO 15 % (4-13); Mean Corpuscular HGB 29.6 pg (26.0-34.0); Mean Corpuscular Volume 96 fL (80-100); Mean Platelet Volume 10.1 fL (9.1-12.4); NEUTROPHILS ABSOLUTE AUTO 3.92 K/mm3 (1.96-9.15); NEUTROPHILS PERCENT AUTO 66 % (41-73); Platelet Count 103 K/mm3 (150-400); RDW Coefficient Variation 21.2 % (11.7-14.2); RDW Standard Deviation 72.7 fL (35.1-46.3); Red Blood Cell Count 2.87 M/mm3 (3.80-5.20); White Blood Cell Count 5.96 K/mm3 (4.00-11.30)
[2020-08-17 05:23] LABS: Bun/Creatinine Ratio 11.5 (12.0-20.0); Creatinine, Blood 1.3 mg/dL (0.40-1.00); Potassium, Blood 3.2 mmol/L (3.5-5.5)
--- NOTE | 2020-08-17 07:26 | NUR ---
SHIFT SUMMARY PT AOX4 T/O SHIFT, TRANSFERS TO COMMODE WITH MINIMAL ASSISTANCE. BREATHING EVEN AND UNLABORED WHILE PT RESTING IN BED, SOME DYSPNEA WITH EXERTION FOLLOWING REPOSITIONING IN BED AND UP TO COMMODE. SATS 93-96% ON RA. AFIB WITH A RATE OF 80'S-90'S BPM T/O NIGHT. PT DENIES ABD PAIN, NO BM DURING SHIFT. PT HAS GOOD URINARY OUTPUT T/O NIGHT, LAST VOID OF 700 MLS. URINE IS GAGAN IN COLOR. PT HAD SOME BLEEDING FROM DRY PSORIATIC LESIONS TO LOW BACK. NO ACTIVE BLEEDING AT THIS TIME. POWERGLIDE PLACED DURING SHIFT DUE TO LOSS OF IV W/ACCIDENTAL DC BY PT. EPISODE OF HYPOTENSION WHEN AWOKEN FROM SLEEP FOR VITALS, RESOLVED, VS STABLE OTHERWISE.
--- NOTE | 2020-08-17 08:00 | NUR ---
pt laying in bed awake a/ox3, pleasant and cooperative with care, follows commands well, denies pain, states she slept ok, lungs are clear dim in bases, resp even and unlabored, no cough noted, hrirr, tele in place running afib per montior, see strip, +1 to 2 edema noted to b/l le, ppp+2, cap refill <3sec, vs stable, afebrile, iv site is power glide to right upper arm, btx4, abd flat soft nontender, voids without diff, skin has psorisis rash all over body, very red under panus, no open areas, maew, up to bathroom indep, marco a, call light in reach.
--- NOTE | 2020-08-17 17:42 | NUR ---
Update 08/17/20 1727: Per chart review with Dr. Llanos, pt. likely to remain hospitalized throughout the weekend. Pt. has been given a packet with many resources within the community. [facility] was contacted and message left to see if they might be able to assist pt. in renewing her medicaid. Care management assessment:Spoke with pt. Lives independently. Pt. is admittedly hoarding and has concerns regarding the cleanliness of her home. I have provided and reviewed resources that could potentially assist in cleaning and preparing meals. Message left for Rubens at [facility] requesting a return call to discuss the patients living situation. I did attempt to discuss the possibility of pt. finding placement within an assisted living facility. Pt. declines at this time. She states that she would like to "make it on her own with the help of caregiver." She agreed that she would consider the assisted living facility further if she is unable to find the support she needs within her home. Pt. has home health currently and will need to F/U post discharge. In addition, [facility] chronic care management team will follow pt. post discharge to ensure that her care is coordinated and provide support as needed. Pt. has the goal of traveling to [facility] to see her daughter in the near future. We discussed that has motivation to improve her current living situation and to make adjustments to improve her overall health. DME: When pt. discharges she is requesting a bedside commode. This will be very difficult for the patient to empty on her own. We again discussed the need for caregiver support.
--- NOTE | 2020-08-17 18:04 | NUR ---
pt up to chair, doing well, had a bit of a sponge bath today, no complaints. call light in reach.
[2020-08-18 04:46] LABS: Bun/Creatinine Ratio 12.4 (12.0-20.0); Calcium, Blood 8.1 mg/dL (8.5-10.1); Creatinine, Blood 1.37 mg/dL (0.40-1.00); Magnesium, Blood 1.3 mg/dL (1.6-2.4); Potassium, Blood 3.8 mmol/L (3.5-5.5)
--- NOTE | 2020-08-18 05:31 | NUR ---
SHIFT SUMMARY NO ACUTE CHANGES THIS SHIFT. VSS. AXO. NO NEURO CHANGES NOTED. PT REMAINS AFIB 80'S. REMAINS ON RA. PT DIURESING WELL. LOTION APPLIED TO PSORIASIS, PT ASKING ABOUT STEROIDS, WILL ASK DAYSHIFT TO COVER WITH HOSPITALIST. PT FOLLOWING FLUID RESTRICTION. OTHERWISE, PT RESTING OFF AND ON T/O SHIFT. USES CALL LIGHT APPROPRIATELY.
--- NOTE | 2020-08-18 08:00 | NUR ---
PT SITTING UP IN A CHAIR FOR BREAKFAST, A/OX3, PLEASANT AND COOPERATIVE WITH CARE, FOLLOWS COMMANDS WELL, DENIES PAIN, REPORTS A GOOD NIGHT, SLEPT WELL, LUNGS ARE CLEAR A BIT DIM IN BASES, RESP EVEN AND UNLABORED, OCC PRODUCTIVE COUGH REPORTED OF YELLOW SPUTUM, ON R/A, HRIRR, TELE IN PLACE RUNNING AFIB PER MONITOR, SEE STRIP, MURMUR NOTED, 1-2+ EDEMA NOTED TO B/L LE, PPP+1, CAP REFILL <3SEC, VS STABLE, AFEBRILE, IV SITE IS POWER GLIDE TO TONI, SITE IS CLEAR AND PATENT, BTX4, ABD FLAT SOFT NONTENDER, VOIDS WITHOUT DIFF, SKIN IS COVERED FROM NECK, EARS TO LOWER EXT WITH PSORIASIS, IS LESS ANGRY RED TODAY, AND SOFTENING, NO OPEN AREAS, IS A PINK AREA THAT IS OUTLINED ON LLE WITH A SCAB IN THE MIDDLE, BRUCE JUAREZ, UP AD AILYN IN ROOM, CALL LIGHT IN REACH.
--- NOTE | 2020-08-18 19:15 | NUR ---
JIMMY HAS BEEN UP TO CHAIR FOR HER MEALS TODAY, STATES SHE IS FEELING PRETTY GOOD, IN GOOD SPIRITS, PSORIASIS IS LOOKING LESS RED, SHE HAD A SHOWER THIS AM, NO ACUTE CHANGES THIS SHIFT. CALL LIGHT IN REACH.
--- NOTE | 2020-08-19 05:32 | NUR ---
SHIFT SUMMARY NO ACUTE CHANGES THIS SHIFT. AXO. VSS. IN AFIB, CONTROLLED RATE 80'S WITH STABLE BP. PT ON RA. UP TO BSC W/OUT ASSIST A FEW TIMESTHIS SHIFT. PT REMAINING W/IN FLUID RESTRICTIONS AND ISDIURESING WELL. OTHERWISE, PT USING CALL LIGHT APPROPRIATELY AND HAS DENIED NEED FOR MU ASSISTANCE.
--- NOTE | 2020-08-19 17:55 | NUR ---
SHIFT SUMMARY: PATIENT HAS BEEN STATUS CHANGED TO MED NO TELE, HAS BEEN USING THE CALL LIGHT APPROPRIATELY, RA, GAIT IS STRONGER, BEEN USING THE BEDSIDE COMMODE WITHOUT ASSISTANCE, SHE IS ALERT AND ORIENTED, HER EDEMA OF HER BLE HAS DECREASED, HOWEVER THE EDEMA ON SAW RIGHT LEG IS > LEFT. 2000 mL FLUID RESTRICTION 1200 DURING THE DAY AND 800 AT NIGHT. POWERGLIDE R UPPER ARM, NO OTHER IV ACCESS, BOTH IV'S IN THE CHEST SHE ENDORSES FAILED. STANDING DAILY WEIGHTS HAVE BEEN INTIATED, PATIENT IS PLEASNAT AND POLITE, WITH NO CONCERNS AT THIS TIME.
--- NOTE | 2020-08-20 06:28 | NUR ---
SHIFT SUMMARY PATIENT FOUND TO BE A PLEASANT LADY WHO IS A&OX4. VSS. NO TELE. ON RA. NO PAIN OR DISTRESS NOTED UPON ASSESSMENT. UP IND IN ROOM AND TO BSC. VOIDING AND EATING WELL WITHOUT ISSUE. COMPLIANT WITH FLUID RESTRICTION. RESTED WELL OVERNIGHT. NO ACUTE CONCERNS AT THIS TIME. WILL CONTINUE TO MONITOR UNTIL REPORT GIVEN TO DAYSHIFT RN.
[2020-08-20 08:29] LABS: BASOPHILS ABSOLUTE AUTO 0.09 K/mm3 (0.00-0.23); BASOPHILS PERCENT AUTO 1 % (0-2); EOSINOPHILS ABSOLUTE AUTO 0.13 K/mm3 (0.00-0.68); EOSINOPHILS PERCENT AUTO 2 % (0-6); Hemoglobin 9.5 g/dL (11.5-16.0); IMMATURE GRAN ABSOLUTE AUTO 0.03 K/mm3 (0.00-0.10); IMMATURE GRAN PERCENT AUTO 0 % (0-1); LYMPHOCYTES ABSOLUTE AUTO 1.24 K/mm3 (0.84-5.20); LYMPHOCYTES PERCENT AUTO 17 % (21-46); MONOCYTES PERCENT AUTO 17 % (4-13); Mean Corpuscular HGB 28.9 pg (26.0-34.0); Mean Corpuscular HGB Conc 30.6 g/dL (31.5-36.5); Mean Corpuscular Volume 94 fL (80-100); Mean Platelet Volume 10.2 fL (9.1-12.4); NEUTROPHILS ABSOLUTE AUTO 4.56 K/mm3 (1.96-9.15); NEUTROPHILS PERCENT AUTO 63 % (41-73); Platelet Count 160 K/mm3 (150-400); RDW Coefficient Variation 19.9 % (11.7-14.2); RDW Standard Deviation 68.1 fL (35.1-46.3); Red Blood Cell Count 3.29 M/mm3 (3.80-5.20); White Blood Cell Count 7.25 K/mm3 (4.00-11.30)
[2020-08-20 08:45] LABS: Albumin, Blood 2.8 g/dL (3.4-5.0); Albumin/Globulin Ratio 0.6 (0.8-1.8); Bun/Creatinine Ratio 18.3 (12.0-20.0); Calcium, Blood 8.3 mg/dL (8.5-10.1); Creatinine, Blood 1.15 mg/dL (0.40-1.00); Globulin, Blood 4.7 g/dL (2.2-4.0); Magnesium, Blood 1.5 mg/dL (1.6-2.4); Potassium, Blood 3.4 mmol/L (3.5-5.5); Total Protein, Blood 7.5 g/dL (6.4-8.2)
[2020-08-20] MEDS ORDERED: ASPI81CH PO (10:49)
[2020-08-20] MEDS ORDERED: ATOR20 PO (10:50)
[2020-08-20] MEDS ORDERED: ALDACTONE25 MG PO (10:51)
[2020-08-20] MEDS ORDERED: MULVITA PO (10:51)
[2020-08-20] MEDS ORDERED: SPIRIVA RESPIMAT4 G3 INH (10:52)
[2020-08-20] MEDS ORDERED: Triamcinolone A15 G4 TOP (10:53)
[2020-08-20] MEDS ORDERED: THERA-D2000 UNIT PO (10:54)
--- NOTE | 2020-08-20 12:15 | NUR ---
PT DISCHARGED HOME IN NAD. DC PAPERWORK AND INSTRUCTIONS HAVE BEEN REVIEWED, ALL QUESTIONS HAVE BEEN ANSWERED. IV ACCESS DC'D WNL. PT ESCORTED FROM DEPT TO AWAITING RIDE USING FWW W/NO INCIDENT.
--- NOTE | 2020-08-20 15:43 | NUR ---
ADMIT: 08/13/20 DISCHARGE: DX: CHF CC: carley Update 08/20/20 1524: Per chart review with Dr. Olivia Damon this am, pt. appropriate for discharge. Discharge plan reviewed with Stefanie. [facility] clinical case manager has been contacted and it was requested that he assist pt. with medicaid needs. Confirmed with [facility] that pt. will resume home health visits post D/C. Though HH is involved, pt. is needing additional support. Chronic healthcare applications analyst Yusuf Simon will establish care with the pt. and continue to provide additional support as needed. Pt. discharged with friend providing transportation home. Hospital F/U visit scheduled for 08/24/20 at 10 am. Confirmed with pt. that she has transportation to the appointment.
== END 2020-08-20 10:34 | disposition home or self-care (01) | DRG 291 ==
LOC: ER 09:11 → PCU 13:04
PROVIDERS: Emergency Medicine; Internal Medicine; Physician Assistant; ADMIT Family Medicine
DX: I13.0 Hypertensive heart and chronic kidney disease with heart failure and stage 1 through stage 4 chronic kidney disease, or unspecified chronic kidney disease (principal); J96.01 Acute respiratory failure with hypoxia; I50.33 Acute on chronic diastolic (congestive) heart failure; L03.116 Cellulitis of left lower limb; L03.115 Cellulitis of right lower limb; E22.1 Hyperprolactinemia; G81.91 Hemiplegia, unspecified affecting right dominant side; E46 Unspecified protein-calorie malnutrition; G45.9 Transient cerebral ischemic attack, unspecified; Z66 Do not resuscitate; I27.20 Pulmonary hypertension, unspecified; I07.1 Rheumatic tricuspid insufficiency; K70.30 Alcoholic cirrhosis of liver without ascites; E03.9 Hypothyroidism, unspecified; K75.81 Nonalcoholic steatohepatitis (NASH); F10.20 Alcohol dependence, uncomplicated; E66.01 Morbid (severe) obesity due to excess calories; Z86.73 Personal history of transient ischemic attack (TIA), and cerebral infarction without residual deficits; E87.6 Hypokalemia; G47.33 Obstructive sleep apnea (adult) (pediatric); Z79.899 Other long term (current) drug therapy; E55.9 Vitamin D deficiency, unspecified; Z98.890 Other specified postprocedural states; Z87.891 Personal history of nicotine dependence; Z91.14 Patient's other noncompliance with medication regimen; N18.31 Chronic kidney disease, stage 3a; L40.50 Arthropathic psoriasis, unspecified; K21.9 Gastro-esophageal reflux disease without esophagitis; Z68.39 Body mass index [BMI] 39.0-39.9, adult; D63.1 Anemia in chronic kidney disease
CPT/HCPCS: 36415; 70551; 71045; 80048; 80053; 82140; 82533; 82947; 83001; 83002; 83690; 83735; 83880; 84100; 84132; 84146; 84443; 85025; 85610; 85730; 93005; 93010; 93308; 93321; 93880; 94640; 94664; 94760; 94762; 96374; 96375; 99285-25; A9270; C1751; C9113; J0690; J1100; J1200; J1650; J1815; J1940; J2405; J3475; J3480; J7050; J7512

== ENCOUNTER 2020-09-22 08:11 | Observation (INO) | payer OTHER ==
[~2020-09-22] VITALS: Ht 170.2 cm; Wt 125.8 kg
[~2020-09-22 08:11] MED LIST changes: +ACAMPROSATE CA333 MG PO; +ALDACTONE25 MG PO; +ASPI81CH PO; +ATENOLOL25 MG PO; +ATOR20 PO; +FERROUS SULFAT325 M3 PO; +LANOXIN PO; +MIDO5 PO; +MULVITA PO; +PRED5 PO; +SPIRIVA RESPIMAT4 G3 INH; +THERA-D2000 UNIT PO; +Triamcinolone A15 G4 TOP
[2020-09-22 09:03] LABS: BASOPHILS ABSOLUTE AUTO 0.18 K/mm3 (0.00-0.23); BASOPHILS PERCENT AUTO 2 % (0-2); EOSINOPHILS ABSOLUTE AUTO 0.09 K/mm3 (0.00-0.68); EOSINOPHILS PERCENT AUTO 1 % (0-6); Hematocrit 31.3 % (33.0-51.0); Hemoglobin 9.9 g/dL (11.5-16.0); IMMATURE GRAN ABSOLUTE AUTO 0.04 K/mm3 (0.00-0.10); IMMATURE GRAN PERCENT AUTO 1 % (0-1); LYMPHOCYTES ABSOLUTE AUTO 0.75 K/mm3 (0.84-5.20); LYMPHOCYTES PERCENT AUTO 9 % (21-46); MONOCYTES ABSOLUTE AUTO 1.33 K/mm3 (0.16-1.47); MONOCYTES PERCENT AUTO 16 % (4-13); Mean Corpuscular HGB 29.8 pg (26.0-34.0); Mean Corpuscular HGB Conc 31.6 g/dL (31.5-36.5); Mean Corpuscular Volume 94 fL (80-100); Mean Platelet Volume 9.5 fL (9.1-12.4); NEUTROPHILS ABSOLUTE AUTO 5.93 K/mm3 (1.96-9.15); NEUTROPHILS PERCENT AUTO 71 % (41-73); Platelet Count 158 K/mm3 (150-400); RDW Coefficient Variation 19.3 % (11.7-14.2); RDW Standard Deviation 67.7 fL (35.1-46.3); Red Blood Cell Count 3.32 M/mm3 (3.80-5.20); White Blood Cell Count 8.32 K/mm3 (4.00-11.30)
[2020-09-22 09:24] LABS: Troponin I 0.171 ng/mL (0.000-0.040)
[2020-09-22 09:30] LABS: Alanine Aminotransfer (ALT/SGP 47 U/L (12-78); Albumin, Blood 2.5 g/dL (3.4-5.0); Albumin/Globulin Ratio 0.5 (0.8-1.8); Alk Phos 189 U/L (50-136); Anion Gap 14 mmol/L (6-16); Aspartate Aminotrans (AST/SGOT 133 U/L (12-37); Bilirubin, Total 4.7 mg/dL (0.1-1.0); Blood Urea Nitrogen 9 mg/dL (8-24); Bun/Creatinine Ratio 9.9 (12.0-20.0); CO2, Blood 34 mmol/L (21-32); Calcium, Blood 7.1 mg/dL (8.5-10.1); Chloride, Blood 83 mmol/L (98-108); Creatinine, Blood 0.91 mg/dL (0.40-1.00); Globulin, Blood 4.9 g/dL (2.2-4.0); Glomerular Filtration Rate >60 (60-); Glucose, Blood 162 mg/dL (70-99); Potassium, Blood 2.3 mmol/L (3.5-5.5); Sodium, Blood 131 mmol/L (136-145); Total Protein, Blood 7.4 g/dL (6.4-8.2)
--- NOTE | 2020-09-23 02:19 | NUR ---
CODE BLUE Patient called to use commode, up with [facility] STORAGE ARCHITECT assist. After commode, patient helped back to bed and dressing to RLE changed by this RN. Patient requesting breathing tx and snack. RT called, vani crackers given. RT arrived and initiated tx. Afterward, this RN and other staff on unit heard RT yelled "Can someone come in here? I think she's having a seizure." Upon arrival to room, patient apneic breathing with mushed vani crackers dripping down mouth, eyes rolled back, barely palpable pulse. CODE called, CPR started. Patient noted to have purple DNR band on R wrist. ER doctor's decision to continue code d/t shockable rhythm noted on monitor. No changes in condition. Dr. Chapa, Nursing Sup Gordon, GRANITE CUTTER, this RN (primary RN), marketing account executive Melita, and code team at bedside during code. Time of : 201.
--- NOTE | 2020-09-23 05:45 | NUR ---
DISCHARGED PATIENT HAS BEEN PICKED UP BY [facility], LORENZO JAMEEMOY @ [phone]. ALL PERSONAL BELONGINGS SENT WITH PATIENT.
== END 2020-09-23 02:02 ==
LOC: ER 08:11 → ERHOLD 08:12 → MEDS 13:20
PROVIDERS: Emergency Medicine; ADMIT Internal Medicine
DX: I13.0 Hypertensive heart and chronic kidney disease with heart failure and stage 1 through stage 4 chronic kidney disease, or unspecified chronic kidney disease (principal); E11.22 Type 2 diabetes mellitus with diabetic chronic kidney disease; I50.33 Acute on chronic diastolic (congestive) heart failure; N18.31 Chronic kidney disease, stage 3a; I49.01 Ventricular fibrillation; I48.0 Paroxysmal atrial fibrillation; D50.0 Iron deficiency anemia secondary to blood loss (chronic); L40.50 Arthropathic psoriasis, unspecified; E87.6 Hypokalemia; E83.42 Hypomagnesemia; E03.9 Hypothyroidism, unspecified; R77.8 Other specified abnormalities of plasma proteins; K70.30 Alcoholic cirrhosis of liver without ascites; K72.90 Hepatic failure, unspecified without coma; K75.81 Nonalcoholic steatohepatitis (NASH); J44.9 Chronic obstructive pulmonary disease, unspecified; I25.10 Atherosclerotic heart disease of native coronary artery without angina pectoris; E78.5 Hyperlipidemia, unspecified; E66.01 Morbid (severe) obesity due to excess calories; I95.9 Hypotension, unspecified; R01.1 Cardiac murmur, unspecified; G47.33 Obstructive sleep apnea (adult) (pediatric); F10.20 Alcohol dependence, uncomplicated; E46 Unspecified protein-calorie malnutrition; E11.65 Type 2 diabetes mellitus with hyperglycemia; Z66 Do not resuscitate; Z91.19 Patient's noncompliance with other medical treatment and regimen; Z91.14 Patient's other noncompliance with medication regimen; Z79.4 Long term (current) use of insulin; Z79.82 Long term (current) use of aspirin; Z79.52 Long term (current) use of systemic steroids; Z87.891 Personal history of nicotine dependence; Z86.73 Personal history of transient ischemic attack (TIA), and cerebral infarction without residual deficits; Z88.8 Allergy status to other drugs, medicaments and biological substances; Z68.41 Body mass index [BMI] 40.0-44.9, adult
CPT/HCPCS: 71045; 80053; 82947; 83735; 83880; 84484; 85025; 92950; 93005; 93010; 94640; 94760; 96365; 96372-59; 96375; 96376; 99285-25; A9270; G0378; J1650; J1940; J2270; J3475; J3480